=== PATIENT | female | born 1955 | race Two or more races ===

== ENCOUNTER 2025-04-29 14:37 | Inpatient (IN) | payer MEDICAID, OTHER ==
[~2025-04-29] VITALS: Ht 160 cm; Wt 83.1 kg
[2025-04-29 16:29] LABS: Hematocrit 44.7 % (36.0-46.0); Hemoglobin 15.1 g/dL (12.2-16.2); Mean Corpuscular Hemoglobin 27.1 pg (28.0-32.0); Mean Corpuscular Volume 80.3 fL (80.0-100.0); Nucleated Red Blood Cells % 0.1 %
--- NOTE | 2025-04-29 16:33 | ED.PDOC ---
GI ASSESSMENT HPI Comments 70 y/o morbidly obese, Bangladeshi speaking F presents with relative for c/c of nonradiating, umbilical abdominal pain, nausea, and vomiting. Significant history of cancer, hypertensin, and umbilical hernia repair 8x years ago. Patient reports onset of symptoms, last night, yesterday, which began with nausea and vomiting. Abdominal pain is reported to have started today, rated a 10/10 in severity, and did not improve with [id number] Tylenol use. Notable recent history of the patient lifting a heavy box 1x week ago. No endorsed recent travel, injuries, spoiled food consumption, or further associated symptoms. Patient was mildly hypertensive on arrival. Chief Complaint: Abdominal Pain Time Seen by MD: 15:50 Reviewed Notes: Nurses Notes, Medications, Allergies Allergies: Coded Allergies: NO KNOWN ALLERGIES (Unverified , 04/29/25) Information Source: Patient, Relative Mode of Arrival: Ambulatory Timing: Hours Duration: Since onset Prehospital treatment: Pain Meds Quality: Aching, Cramping, Sharp Vomitus: Food Particles, Soft, Watery Severity: Severe Recent: None Recent Hx of: Diabetes Pain Location: Diffuse, Epigastric, Periumbilical Modifying Factors: Food Associated sign and symptoms: Nausea, Vomiting, Abdominal Pain Past Medical History PAST MEDICAL HISTORY: Cancer, HTN Surgical History: Hernia Repair (umbilical ) [employer] History: Denies all [employer] Hx Family History Family History: Unknown Social History Smoker: Non-Smoker Alcohol: Denies ETOH Use Drugs: Denies Drug Use Lives In: Home Constitutional: denies: chills, diaphoresis, fatigue, fever, malaise, sweats, weakness, others EENTM: denies: blurred vision, double vision, ear bleeding, ear discharge, ear drainage, ear pain, ear ringing, eye pain, eye redness, hearing loss, mouth pain, mouth swelling, nasal discharge, nose bleeding, nose congestion, nose pain, photophobia, tearing, throat pain, throat swelling, voice changes, others Respiratory: denies: cough, hemoptysis, orthopnea, SOB at rest, shortness of breath, SOB with excertion, stridor, wheezing, others Cardiovascular: denies: chest pain, dizzy spells, diaphoresis, Dyspnea on exertion, edema, irregular heart beat, left arm pain, lightheadedness, palpitations, PND, syncope, others Gastrointestinal: reports: abdominal pain, nausea, vomiting; denies: abdomen distended, blood streaked bowels, constipated, diarrhea, dysphagia, difficulty swallowing, hematemesis, melena, poor appetite, poor fluid intake, rectal bleeding, rectal pain, others Genitourinary: denies: abnormal vagina bleeding, burning, dyspareunia, dysuria, flank pain, frequency, hematuria, incontinence, pain, , vagina discharge, urgency, others Neurological: denies: dizziness, fainting, headache, left sided numbness, left sided weakness, numbness, paresthesia, pre-existing deficit, right sided numbness, right sided weakness, seizure, speech problems, tingling, tremors, weakness, others Musculoskeletal: denies: back pain, gout, joint pain, joint swelling, muscle pain, muscle stiffness, neck pain, others Integumetry: denies: bruises, change in color, change in hair/nails, dryness, laceration, lesions, lumps, rash, wounds, others Allergic/Immunocompromised: denies: Difficulty Healing, Frequent Infections, Hives, Itching, others Hematologic/Lymphatic: denies: anemia, blood clots, easy bleeding, easy bruising, swollen glands, others Endocrine: denies: excessive hunger, excessive sweating, excessive thirst, excessive urination, flushing, intolerance to cold, intolerance to heat, unexplained weight gain, unexplained weight loss, others Psychiatric: denies: anxiety, bipolar disorder, depression, hopeless, panic disorder, schizophrenia, sleepless, suicidal, others All Other Systems: Reviewed and Negative (Comprehensive review of systems are negative unless stated in HPI) Physical Exam General Appearance: Moderate Distress (Due to belly pain concerns. Patient looks moderately toxic.), Obese HEENT: Normal ENT Inspection, Pharynx Normal, TMs Normal Neck: Full Range of Motion, Non-Tender, Normal, Normal Inspection Respiratory: Chest Non-Tender, Lungs Clear, No Accessory Muscle Use, No Respiratory Distress, Normal Breath Sounds Cardiovascular: No Edema, No JVD, No Murmur, No Gallop, Normal Peripheral Pulses, Regular Rate/Rhythm Breast Exam: Deferred Gastrointestinal: Other (Diffuse periumbilical and epigastric tenderness to palpation throughout. Difficult to assess due to body habitus. No pulsatile masses. No signs of trauma.) Genitalia: Deferred Pelvic: Deferred Rectal: Deferred Extremities: Non-tender Neurologic: Alert Cerebellar Function: NOT DONE Reflexes: NOT DONE Skin: Dry, Normal Color, Warm Lymphatic: No Adenopathy Was a procedure done? Was a procedure done?: No GI differential Dx Differential Diagnosis: Constipation, Diverticular disease, Gastritis/PUD, Gastroenteritis, Hernia, Pancreatitis, UTI, Electrolyte Imbalance X-Ray, Labs, Meds, VS Vital Signs Date Time Temp Pulse Resp B/P (MAP) Pulse Ox O2 Delivery O2 Flow Rate FiO2 04/29/25 21:51 83 22 174/108 04/29/25 20:43 98.4 79 16 150/93 (112) 96 98.4 04/29/25 15:03 98.2 71 18 147/77 99 98.2 Lab Test 04/29/25 18:05 04/29/25 16:30 04/29/25 16:09 Range/Units Troponin I High Sensitivity 4 4 </=34 ng/L Urine Color Yellow Yellow Urine Clarity Turbid H Clear Urine pH 6.0 5.0-9.0 Urine Specific [place] 1.038 H 1.001-1.035 Urine Protein 1+ H Negative Urine Ketones Trace Negative Urine Blood Negative Negative /uL Urine Nitrite Negative Negative Urine Bilirubin 1+ H Negative Urine Urobilinogen 2 H Negative mg/dL Urine Leukocyte Esterase 2+ Negative /uL Urine RBC 1 0 - 4 /hpf Urine Microscopic WBC 10 H 0-5 /HPF Urine Squamous Epithelial Cells Few <5 /hpf Urine Bacteria Few H None Seen /hpf Urine Hyaline Casts Few 0 - 2 /lpf Urine Mucus Few None Seen Urine Glucose Trace Normal mg/dL White Blood Count 15.2 H 4.4-10.8 10^3/uL Red Blood Count 5.57 H 4.0-5.20 10^6/uL Hemoglobin 15.1 12.2-16.2 g/dL Hematocrit 44.7 36.0-46.0 % Mean Corpuscular Volume 80.3 80.0-100.0 fL Mean Corpuscular Hemoglobin 27.1 L 28.0-32.0 pg Mean Corpuscular Hemoglobin Concent 33.8 32.0-36.0 g/dL Red Cell Distribution Width 15.8 H 11.8-14.3 % Platelet Count 234 140-450 10^3/uL Mean Platelet Volume 8.3 6.9-10.8 fL Neutrophils (%) (Auto) 87.1 H 37.0-80.0 % Lymphocytes (%) (Auto) 8.3 L 10.0-50.0 % Monocytes (%) (Auto) 4.5 0.0-12.0 % Eosinophils (%) (Auto) 0.0 0.0-7.0 % Basophils (%) (Auto) 0.1 0.0-2.0 % Neutrophils # (Auto) 13.3 H 1.6-8.6 10 ^3/uL Lymphocytes # (Auto) 1.3 0.4-5.4 10 ^3/uL Monocytes # (Auto) 0.7 0-1.3 10 ^3/uL Eosinophils # (Auto) 0 0-0.8 10 ^3/uL Basophils # (Auto) 0 0-0.2 10 ^3/uL Nucleated Red Blood Cells 0.1 % Sodium Level 139 136-145 mmol/L Potassium Level 3.3 L 3.5-5.1 mmol/L Chloride Level 97 L 98-107 mmol/L Carbon Dioxide Level 30 20-31 mmol/L Anion Gap 12 5-15 Blood Urea Nitrogen 15 9-23 mg/dL Creatinine 0.83 0.550-1.02 mg/dL Glomerular Filtration Rate Calc 76 >90 mL/min BUN/Creatinine Ratio 18.1 10.0-20.0 Serum Glucose 138 H 74-106 mg/dL Lactic Acid Level 1.3 0.4-2.0 mmol/L Calcium Level 9.4 8.7-10.4 mg/dL Lipase 599 H 12-53 U/L Current Medications Medications (Trade) Dose Ordered Sig/[facility] Route Start Time Stop Time Status Last Admin Hydromorphone HCl (Dilaudid Injection) 0.5 mg ONCE ONCE IM 04/29/25 16:00 04/29/25 16:01 DC 04/29/25 21:51 Ondansetron HCl (Zofran) 4 mg ONCE ONCE IM 04/29/25 16:00 04/29/25 16:01 DC 04/29/25 21:50 X-Ray, Labs, Meds, VS Comment All studies performed in the ED were evaluated by me personally. Serum evaluation revealed a leukocytosis, mild hypokalemia, significant elevated lipase indicative of a pancreatitis as well as confirmation of the urinary tract infection. CT of the abdomen and pelvis with contrast showed an acute interstitial pancreatitis with a focal area of hypoattenuation of the pancreatic head and neck which may represent an area of pancreatic necrosis. Duodenitis noted. Small volume ascites as well as cholelithiasis. Patient will be admitted for management of her pancreatitis as well as a urinary tract infection and other comorbidities. Time of 1ST Reevaluation: 22:42 Reevaluation 1ST: Improved Consultation: PCP Patient Education/Counseling: Diagnosis, Treatment Family Education/Counseling: Diagnosis, Treatment, No Family Present SEPSIS Sepsis Screen Date sepsis recognized/suspect: Apr 29, 2025 Time Sepsis recognized/suspect: 1504 Recent Procedure: No On Antibiotic Therapy: No Respiratory Rate >20: No Heart Rate >90: No Temp<36 C (96.8 F) or >38.3 C: No SBP <90 or MAP <65 mmHG: No New Acute Mental Status Change: No Is the patient on CPAP, BIPAP,: No Physician Orders Troponin-I Hs (04/30/25 00:00) Troponin-I Hs (04/30/25 03:00) Ct Ab Pel With Iv Con Only (04/29/25 15:52) Heplock Iv (04/29/25 15:52) Vital Signs Date Time Temp Pulse Resp B/P (MAP) Pulse Ox O2 Delivery O2 Flow Rate FiO2 04/29/25 21:51 83 22 174/108 04/29/25 20:43 98.4 79 16 150/93 (112) 96 98.4 04/29/25 15:03 98.2 71 18 147/77 99 98.2 Laboratory Tests Test 04/29/25 16:09 Lactic Acid Level 1.3 mmol/L (0.4-2.0) White Blood Count 15.2 10^3/uL (4.4-10.8) H Medications Medications Dose Ordered Sig/[facility] Route Start Time Stop Time Status Last Admin Dose Admin Hydromorphone HCl 0.5 mg ONCE ONCE IM 04/29/25 16:00 04/29/25 16:01 DC 04/29/25 21:51 Ondansetron HCl 4 mg ONCE ONCE IM 04/29/25 16:00 04/29/25 16:01 DC 04/29/25 21:50 Departure 1 Departure Time of Disposition: 22:43 Impression: Primary Impression: Acute pancreatitis Additional Impressions: Pancreatic necrosis Hypokalemia Urinary tract infection Hypertensive urgency Disposition: ADMITTED INPATIENT Condition: Stable Discharged With: Self, Relative Critical Care Note Critical Care Time?: No Stability Stability form required: No Heart Score Heart Score: Heart Score Response (Comments) Value History N/A 0 EKG N/A 0 Age N/A 0 Risk Factors N/A 0 Troponin N/A 0 Total 0 I personally scribed for RUMA VERAS PAC ([email or web address]) on 04/29/25 at 16:33. Electronically submitted by Eliezer López ([email or web address]). RUMA VERAS PAC Apr 29, 2025 16:33
[2025-04-29 16:40] LABS: Sodium 139 mmol/L (136-145)
[2025-04-29 16:41] LABS: Anion Gap 12 (5-15); Calcium 9.4 mg/dL (8.7-10.4); Carbon Dioxide 30 mmol/L (20-31)
[2025-04-29 16:46] LABS: BUN/Creatinine Ratio 18.1 (10.0-20.0); Blood Urea Nitrogen 15 mg/dL (9-23)
[2025-04-29 16:47] LABS: Chloride 97 mmol/L (98-107); Glucose 138 mg/dL (74-106); Lipase 599 U/L (12-53); Potassium 3.3 mmol/L (3.5-5.1)
[2025-04-29 17:07] LABS: Urine Protein, UAD 1+ (Negative)
--- NOTE | 2025-04-29 19:45 | DVH ---
EXAM: CT CT AB PEL WITH IV CON ONLY HISTORY: Severe bilateral abdominal pain TECHNIQUE: Volumetric multidetector CT images of the abdomen and pelvis were obtained after the admin istration of intravenous contrast. All CT scans at this facility use dose modulation, iterative recon struction, and/or weight based dosing when appropriate to reduce radiation dose to as low as reasonab ly achievable. COMPARISON: None FINDINGS: [LOWER CHEST]: The partially visualized lung bases are clear without a pleural effusion. [LIVER]: Normal hepatic size without suspicious focal lesion. [GALLBLADDER AND BILIARY TREE]: Large gallstone measuring 2.4 cm. Pericholecystic edema. [SPLEEN]: Unremarkable. [PANCREAS]: Significant edema surrounding the entirety of the pancreas with focal area of hypoattenua tion of the pancreatic head/neck junction which may represent focal area of pancreatic necrosis. Conc omitant duodenitis. [ADRENAL GLANDS]: Unremarkable [KIDNEYS]: No hydronephrosis. No nephroureterolithiasis. No suspicious focal lesion. [BLADDER]: Unremarkable for the degree distention. [REPRODUCTIVE ORGANS]: Unremarkable. [BOWEL/MESENTERY]: Stomach is normal. No CT evidence of bowel obstruction. [ASCITES]: Small volume ascites. [LYMPHADENOPATHY]: No pathologically enlarged lymph nodes by CT size criteria. Surgical clips along the iliac chains pelvic sidewall. [VASCULATURE]: No aneurysmal dilatation. [ABDOMINAL WALL]: Postsurgical change along the anterior abdominal with slight spiculated appearance correlate with clinical exam for scarring [MUSCULOSKELETAL]: No acute fracture or aggressive focal osseous lesion. Multifocal degenerative montgomery ge of the visualized spine. IMPRESSION: 1. Acute interstitial pancreatitis with focal area of hypoattenuation of the pancreatic head/neck anna marie ction which may represent focal area of pancreatic necrosis. 2. Concomitant duodenitis. 3. Small volume ascites. 4. Cholelithiasis.
[2025-04-29] MEDS: IOHEXOL 300 MG/ML 100ML BOTTLE IJ ONE (21:48)
[2025-04-29] MEDS: ONDANSETRON HCL 4 MG/2 ML VIAL IM ONE (21:50)
[2025-04-29] MEDS: HYDROmorphone HCL 2 MG/ML VL/or syr IM ONE (21:51)
[2025-04-29] MEDS ORDERED: DOCUSATE SOD 100 MG CAP PO PRN (23:15)
[2025-04-29] MEDS ORDERED: MORPHINE SULFATE INJ 2 MG/ml SYRG IV PRN (23:15)
[2025-04-29] MEDS ORDERED: hydrALAZINE HCL 20 MG/ML VL IV PRN (23:15)
[2025-04-29] MEDS ORDERED: NITROGLYCERIN 0.4 MG SL TAB SL PRN (23:15)
[2025-04-29] MEDS ORDERED: DEXTROSE (50%) 50ML SYRG IV PRN (23:15)
[2025-04-29] MEDS ORDERED: ONDANSETRON HCL 4 MG/2 ML VIAL IV PRN (23:15)
--- NOTE | 2025-04-29 23:20 | DVHHP2 ---
History of Present Illness Reason for Visit: Acute pancreatitis History of Present Illness The patient is a 70-year-old female morbidly obese with past medical history of cancer, hypertension, and umbilical hernia who presented to [facility] ED with complaint of abdominal pain. Patient reports she has been experiencing acute abdominal pain, rating 10/10 in severity, constant, associated with nausea, vomiting, getting worse that prompted this visit. Patient was seen and evaluated in the ED, laboratory data shows WBC 15.2, platelets 234, sodium 139, potassium 3.3, BUN 15, creatinine 0.83, glucose 138, calcium 9.4, troponin 4, lipase 599, blood pressure 175/102 trending down to 148/71, heart rate 72, temperature 98.4 F, O2 saturation 96% on room air. Abdomen/pelvis CT revealing acute interstitial pancreatitis with focal area of hyperattenuation of the pancreatic head/neck junction which may represent focal area of pancreatic necrosis. Please see medication orders section in the computer. On my assessment, daughter at bedside, patient denies chest pain, no headache, dizziness, diaphoresis, shortness a breath, no abdominal pain at this moment, diarrhea, nausea, vomiting, fever, chills. Patient was admitted for further evaluation and medical management. Past Medical History Cancer, HTN, Umbilical hernia Past Surgical History Hernia Repair (umbilical) Family History Reviewed, noncontributory to the management of this case. Past Social History The patient lives at home, denies smoking, alcohol or illicit drugs abuse. Review of Systems Constitutional: Yes: Weakness; No: Fever, Chills, Sweats, Malaise, Other Eyes: No: Pain, Vision change, Conjunctivae inflammation, Eyelid inflammation, Other, Redness ENT: No: Ear pain, Ear discharge, Nose pain, Nose discharge, Nose congestion, Mouth pain, Mouth swelling, Throat pain, Throat swelling, Other Respiratory: No: Cough, Dry, Shortness of breath, SOB with excertion, Wheezing, Hemoptysis, Pleuritic Pain, Sputum, Wheezing, Other Cardiovascular: No: Chest Pain, Palpitations, Orthopnea, Paroxysmal Noc. Dyspnea, Edema, Lt Headedness, Other Gastrointestinal: Nausea, Vomiting, Abdominal Pain; No: Diarrhea, Constipation, Melena, Hematochezia, Other Genitourinary: No Dysuria, No Frequency, No Incontinence, No Hematuria, No Rete ntion, No Other Musculoskeletal: No: other, neck pain, shoulder pain, arm pain, back pain, hand pain, leg pain, foot pain Skin: No: Rash, Lesions, Jaundice, Bruising, Other Neurological: No: Weakness, Numbness, Incoordination, Change in speech, Confusion, Seizures, Other Allergies: Coded Allergies: NO KNOWN ALLERGIES (Unverified , 04/29/25) Exam Vital Signs Vital Signs Date Time Temp Pulse Resp B/P (MAP) Pulse Ox O2 Delivery O2 Flow Rate FiO2 04/29/25 22:59 71 16 175/102 (126) 93 04/29/25 20:43 98.4 98.4 General Appearance: Alert, Oriented X3, Cooperative, No acute distress HEENT: Atraumatic, PERRLA, EOMI, Mucous membr. moist/pink Respiratory: Clear to auscultation, Normal air movement Cardiovascular: Regular rate, Normal S1, Normal S2, No murmurs Abdominal: Normal bowel sounds, Soft, No hepatospenomegaly, No masses, Other (Reports tenderness) Extremities: No clubbing, No cyanosis, No edema, Normal pulses, No tenderness/swelling Skin: No rashes, No breakdown, No significant lesion Neuro: Normal gait, Normal speech, Strength at 5/5 X4 ext, Normal tone, Sensation intact, Cranial nerves 3-12 NL, Reflexes 2+ Psych/Mental Status: Mental status NL, Mood NL Labs/Xrays Labs Test 04/29/25 18:05 04/29/25 16:30 04/29/25 16:09 Range/Units Troponin I High Sensitivity 4 </=34 ng/L Urine Color Yellow Yellow Urine Clarity Turbid H Clear Urine pH 6.0 5.0-9.0 Urine Specific [place] 1.038 H 1.001-1.035 Urine Protein 1+ H Negative Urine Ketones Trace Negative Urine Blood Negative Negative /uL Urine Nitrite Negative Negative Urine Bilirubin 1+ H Negative Urine Urobilinogen 2 H Negative mg/dL Urine Leukocyte Esterase 2+ Negative /uL Urine RBC 1 0 - 4 /hpf Urine Microscopic WBC 10 H 0-5 /HPF Urine Squamous Epithelial Cells Few <5 /hpf Urine Bacteria Few H None Seen /hpf Urine Hyaline Casts Few 0 - 2 /lpf Urine Mucus Few None Seen Urine Glucose Trace Normal mg/dL White Blood Count 15.2 H 4.4-10.8 10^3/uL Red Blood Count 5.57 H 4.0-5.20 10^6/uL Hemoglobin 15.1 12.2-16.2 g/dL Hematocrit 44.7 36.0-46.0 % Mean Corpuscular Volume 80.3 80.0-100.0 fL Mean Corpuscular Hemoglobin 27.1 L 28.0-32.0 pg Mean Corpuscular Hemoglobin Concent 33.8 32.0-36.0 g/dL Red Cell Distribution Width 15.8 H 11.8-14.3 % Platelet Count 234 140-450 10^3/uL Mean Platelet Volume 8.3 6.9-10.8 fL Neutrophils (%) (Auto) 87.1 H 37.0-80.0 % Lymphocytes (%) (Auto) 8.3 L 10.0-50.0 % Monocytes (%) (Auto) 4.5 0.0-12.0 % Eosinophils (%) (Auto) 0.0 0.0-7.0 % Basophils (%) (Auto) 0.1 0.0-2.0 % Neutrophils # (Auto) 13.3 H 1.6-8.6 10 ^3/uL Lymphocytes # (Auto) 1.3 0.4-5.4 10 ^3/uL Monocytes # (Auto) 0.7 0-1.3 10 ^3/uL Eosinophils # (Auto) 0 0-0.8 10 ^3/uL Basophils # (Auto) 0 0-0.2 10 ^3/uL Nucleated Red Blood Cells 0.1 % Sodium Level 139 136-145 mmol/L Potassium Level 3.3 L 3.5-5.1 mmol/L Chloride Level 97 L 98-107 mmol/L Carbon Dioxide Level 30 20-31 mmol/L Anion Gap 12 5-15 Blood Urea Nitrogen 15 9-23 mg/dL Creatinine 0.83 0.550-1.02 mg/dL Glomerular Filtration Rate Calc 76 >90 mL/min BUN/Creatinine Ratio 18.1 10.0-20.0 Serum Glucose 138 H 74-106 mg/dL Lactic Acid Level 1.3 0.4-2.0 mmol/L Calcium Level 9.4 8.7-10.4 mg/dL Lipase 599 H 12-53 U/L PATIENT: SIMRAN NASH ACCT: [id number] UNIT: [id number] : 1955 LOC: ER ROOM / BED: / AGE / SEX: 70 / F ADM STATUS: REG ER SERVICE 1552 ORDERING PHYSICIAN: RUMA VERAS PAC PROCEDURE(s): ABPLIV - CT AB PEL WITH IV CON ONLY REASON: Severe bilateral abdominal pain ORDER NUMBER(s): [id number], ACCESSION NUMBER(s): [id number] EXAM: CT CT AB PEL WITH IV CON ONLY HISTORY: Severe bilateral abdominal pain TECHNIQUE: Volumetric multidetector CT images of the abdomen and pelvis were obtained after the administration of intravenous contrast. All CT scans at this facility use dose modulation, iterative reconstruction, and/or weight based dosing when appropriate to reduce radiation dose to as low as reasonably achievable. COMPARISON: None FINDINGS: [LOWER CHEST]: The partially visualized lung bases are clear without a pleural effusion. [LIVER]: Normal hepatic size without suspicious focal lesion. [GALLBLADDER AND BILIARY TREE]: Large gallstone measuring 2.4 cm. Pericholecystic edema. [SPLEEN]: Unremarkable. [PANCREAS]: Significant edema surrounding the entirety of the pancreas with focal area of hypoattenuation of the pancreatic head/neck junction which may represent focal area of pancreatic necrosis. Concomitant duodenitis. [ADRENAL GLANDS]: Unremarkable [KIDNEYS]: No hydronephrosis. No nephro-ureterolithiasis. No suspicious focal lesion. [BLADDER]: Unremarkable for the degree distention. [REPRODUCTIVE ORGANS]: Unremarkable. [BOWEL/MESENTERY]: Stomach is normal. No CT evidence of bowel obstruction. [ASCITES]: Small volume ascites. [LYMPHADENOPATHY]: No pathologically enlarged lymph nodes by CT size criteria. Surgical clips along the iliac chains pelvic sidewall. [VASCULATURE]: No aneurysmal dilatation. [ABDOMINAL WALL]: Postsurgical change along the anterior abdominal with slight spiculated appearance correlate with clinical exam for scarring [MUSCULOSKELETAL]: No acute fracture or aggressive focal osseous lesion. Multi focal degenerative change of the visualized spine. IMPRESSION: 1. Acute interstitial pancreatitis with focal area of hypoattenuation of the pancreatic head/neck junction which may represent focal area of pancreatic necrosis. 2. Concomitant duodenitis. 3. Small volume ascites. 4. Cholelithiasis. SEPSIS Sepsis Screen Date sepsis recognized/suspect: Apr 29, 2025 Time Sepsis recognized/suspect: 1505 Recent Procedure: No On Antibiotic Therapy: No Respiratory Rate >20: No Heart Rate >90: No Temp<36 C (96.8 F) or >38.3 C: No SBP <90 or MAP <65 mmHG: No New Acute Mental Status Change: No Is the patient on CPAP, BIPAP,: No Physician Orders Troponin-I Hs (04/30/25 00:00) Troponin-I Hs (04/30/25 03:00) Ct Ab Pel With Iv Con Only (04/29/25 15:52) Heplock Iv (04/29/25 15:52) Ceftriaxone Ivpb Rocephin (04/30/25 09:00) Metronidazole Ivpb Flagyl (04/30/25 06:00) Hydralazine Injection (Apresoline Inject (04/29/25 23:15) Potassium Chl Shiva Kcl (04/29/25 23:15) Losartan Tablet (Cozaar Tablet) (04/30/25 10:00) Amlodipine Tablet (Norvasc Tablet) (04/30/25 10:00) Blood Culture (04/29/25 23:08) Urine Bacterial Culture (04/29/25 23:08) Hemoglobin A1c (04/29/25 23:08) Glucose Blood (Accu-Chek Comfort Curve T (04/30/25 07:00) Mild Sliding Scale (04/30/25 07:00) Dextrose 50% Syringe (04/29/25 23:15) Admit (04/29/25 23:08) Allergies (04/29/25 23:08) Code Status (04/29/25 23:08) 0.9% Ns 1000 Ml (04/29/25 23:15) Oxygen Per Hour (04/29/25 23:08) Hydrocodone-Acet 5/325mg Tab ([place] 5/32 (04/29/25 23:15) Ondansetron Hcl (Zofran) (04/29/25 23:15) Docusate Sodium Capsule (Colace Capsule) (04/29/25 23:15) Complete Blood Count (04/30/25 04:00) Comprehensive Metabolic Panel (04/30/25 04:00) Condition: Serious (04/29/25 23:08) Acetaminophen Tablet (Tylenol Tablet) (04/29/25 23:15) Clear Liq Diet (04/30/25 Breakfast) Bedrest With Bathroom Privileg (04/29/25 23:08) Sequential Compression Device (04/29/25 ) Nitroglycerin Sublingual (Ntrostat Subli (04/29/25 23:15) Vital Signs Date Time Temp Pulse Resp B/P (MAP) Pulse Ox O2 Delivery O2 Flow Rate FiO2 04/29/25 22:59 71 16 175/102 (126) 93 04/29/25 22:56 175/102 04/29/25 22:56 71 14 175/102 04/29/25 21:51 83 22 174/108 04/29/25 20:43 98.4 79 16 150/93 (112) 96 98.4 Laboratory Tests Test 04/29/25 16:09 Lactic Acid Level 1.3 mmol/L (0.4-2.0) White Blood Count 15.2 10^3/uL (4.4-10.8) H Medications Medications Dose Ordered Sig/Leonora Route Start Time Stop Time Status Last Admin Dose Admin Ceftriaxone Sodium 50 ml @ 100 mls/hr ONCE ONCE IV 04/29/25 22:45 04/29/25 23:14 DC 04/29/25 22:56 100 MLS/HR Clonidine HCl 0.2 mg ONCE ONCE PO 04/29/25 22:45 04/29/25 22:46 DC 04/29/25 22:56 0.2 MG Hydromorphone HCl 0.5 mg ONCE ONCE IM 04/29/25 16:00 04/29/25 16:01 DC 04/29/25 21:51 0.5 MG Ondansetron HCl 4 mg ONCE ONCE IM 04/29/25 16:00 04/29/25 16:01 DC 04/29/25 21:50 4 MG Assessment/Plan Assessment/Plan Acute pancreatitis Pancreatic necrosis Hypokalemia Hyperglycemia Leukocytosis, unspecified Urinary tract infection Hypertensive urgency Acute abdominal pain Intractable nausea and vomiting Plan 1. Admit to telemetry unit 2. Breathing treatment 3. Pain control management 4. IV antibiotic management 5. Management of fluids and electrolytes 6. Consultation for hospitalist 7. Diagnostic test abdomen/pelvis 8. DVT prophylaxis on SCDS 9. Repeat labs CBC, CMP in a.m. 10. Home medication reviewed and reconciled 11. Continue with current medical management 12. Treatment plan discussed with patient and RN. Patient verbalized understanding. Plan discussed with: Patient, Other (RN) My Orders Orders - PAUL OLIVO DNP Procedure Category Date Status Time Ceftriaxone Ivpb PHA 04/30/25 Verified Rocephin 09:00 Metronidazole Ivpb PHA 04/30/25 Verified Flagyl 06:00 Hydralazine Injection PHA 04/29/25 Verified (Apresoline Inject 23:15 Potassium Chl Shiva PHA 04/29/25 Verified KCL 23:15 Losartan Tablet PHA 04/30/25 Verified (Cozaar Tablet) 10:00 Amlodipine Tablet PHA 04/30/25 Verified (Norvasc Tablet) 10:00 Blood Culture DUC 04/29/25 Verified 23:08 Urine Bacterial DUC 04/29/25 Verified Culture 23:08 Hemoglobin A1c LAB 04/29/25 Verified 23:08 Glucose Blood PHA 04/30/25 Verified (Accu-Chek Comfort 07:00 Mild Sliding Scale PHA 04/30/25 Verified 07:00 Dextrose 50% Syringe PHA 04/29/25 Verified 23:15 Admit ADMIT 04/29/25 Verified 23:08 Allergies LENKA 04/29/25 Verified 23:08 Code Status CODE 04/29/25 Verified 23:08 0.9% Ns 1000 Ml PHA 04/29/25 Verified 23:15 Oxygen Per Hour RT 04/29/25 Verified 23:08 Hydrocodone-Acet PHA 04/29/25 Verified 5/325mg Tab ([place] 23:15 Ondansetron Hcl PHA 04/29/25 Verified (Zofran) 23:15 Docusate Sodium PHA 04/29/25 Verified Capsule (Colace 23:15 Complete Blood Count LAB 04/30/25 Verified 04:00 Comprehensive LAB 04/30/25 Verified Metabolic Panel 04:00 Condition: Serious LENKA 04/29/25 Verified 23:08 Acetaminophen Tablet PHA 04/29/25 Verified (Tylenol Tablet) 23:15 Clear Liq Diet DIET 04/30/25 Verified Breakfast Bedrest With Bathroom LENKA 04/29/25 Verified Privileg 23:08 Sequential LENKA 04/29/25 Verified Compression Device Nitroglycerin PHA 04/29/25 Verified Sublingual (Ntrostat 23:15 Problem List: (1) Acute pancreatitis (2) Pancreatic necrosis (3) Hypokalemia (4) Hyperglycemia (5) Acute abdominal pain (6) Leukocytosis, unspecified (7) Hypertensive urgency (8) Urinary tract infection (9) Intractable nausea and vomiting Date of Service: Apr 29, 2025 Billing Provider: PAUL OLIVO DNP Common Visit Codes: [id number] INP/OBS CARE (HIGH) PAUL OLIVO DNP Apr 29, 2025 23:20
[2025-04-30] VITALS (8 sets, daily range): BP systolic 107–136; BP diastolic 54–74; PULSE 70–78; RESP 13–20; TEMP 97.9–98.5; O2SAT 90–96
[2025-04-30] MEDS: SODIUM CHLORIDE 0.9% 1,000 ML IV SCH (00:21)
[2025-04-30] MEDS: HYDROcodone-ACET 5/325MG TAB PO PRN (03:41)
[2025-04-30 04:55] LABS: Hematocrit 47.6 % (36.0-46.0); Hemoglobin 15.7 g/dL (12.2-16.2); Mean Corpuscular Hemoglobin 27.3 pg (28.0-32.0); Mean Corpuscular Volume 82.5 fL (80.0-100.0); Nucleated Red Blood Cells % 0.1 %
[2025-04-30 05:49] LABS: Albumin 4.3 g/dL (3.2-4.8); Anion Gap 16 (5-15); BUN/Creatinine Ratio 25.3 (10.0-20.0); Blood Urea Nitrogen 21 mg/dL (9-23); Carbon Dioxide 28 mmol/L (20-31); Sodium 138 mmol/L (136-145); Total Protein 7.2 g/dL (5.7-8.2)
[2025-04-30 05:50] LABS: Alanine Aminotransferase 187 U/L (7-40); Alkaline Phosphatase 119 U/L (46-116); Bilirubin, Total 1.0 mg/dL (0.2-1.0); Calcium 8.5 mg/dL (8.7-10.4); Chloride 94 mmol/L (98-107); Glucose 170 mg/dL (74-106); Potassium 3.3 mmol/L (3.5-5.1)
[2025-04-30] MEDS: InsuLIN REG 1unit/0.01ml Soln (100units/ml) SC SCH (07:03)
[2025-04-30] MEDS: ACCU-CHEK COMFORT CURVE STRIP VI SCH (07:04)
[2025-04-30] MEDS: POTASSIUM CHL 20MEQ/100ML 100 ML IV ONE (09:17)
[2025-04-30] MEDS: LOSARTAN POTASSIUM 50 MG TAB PO SCH (09:18)
[2025-04-30] MEDS ORDERED: LISI10TA34 PO (10:21)
[2025-04-30] MEDS ORDERED: DULO1CAP6 PO (10:21)
[2025-04-30] MEDS ORDERED: ATOR40TA52 PO (10:21)
[2025-04-30] MEDS ORDERED: CHOL400C7 PO (10:21)
--- NOTE | 2025-04-30 13:30 | DVHPN2 ---
Reviewed: Care Plan, H&P, Labs, Medications, Previous Orders, Radiology Changes from previous H/P or p: No Changes Eyes: No Pain, No Vision change, No Conjunctivae inflammation, No Eyelid inflammation, No Other, No Redness ENT: No Ear pain, No Ear discharge, No Nose pain, No Nose discharge, No Nose congestion, No Mouth pain, No Mouth swelling, No Throat pain, No Throat swelling, No Other Cardiovascular: No Chest Pain, No Palpitations, No Orthopnea, No Paroxysmal Noc. Dyspnea, No Edema, No Lt Headedness, No Other Respiratory: No Cough, No Dry, No Shortness of breath, No SOB with excertion, No Wheezing, No Hemoptysis, No Pleuritic Pain, No Sputum, No Other Gastrointestinal: Nausea, Vomiting, Abdominal Pain; No Diarrhea, No Constipation, No Melena, No Hematochezia, No Other Genitourinary: No Dysuria, No Frequency, No Incontinence, No Hematuria, No Retention, No Other Musculoskeletal: No other, No neck pain, No shoulder pain, No arm pain, No back pain, No hand pain, No leg pain, No foot pain Skin: No Rash, No Lesions, No Jaundice, No Bruising, No Other Objective Vitals Vital Signs Date Time Temp Pulse Resp B/P (MAP) Pulse Ox O2 Delivery O2 Flow Rate FiO2 04/30/25 13:00 98.5 78 20 128/69 (88) 91 98.5 04/30/25 03:30 Room Air* 0 21 Intake/Output Intake and Output 04/30/25 07:00 Intake Total 100 ml Balance 100 ml Intake IV Total 100 ml Medications Current Medications Medications Dose Ordered Sig/Leonora Route Start Time Stop Time Status Last Admin Dose Admin Ceftriaxone Sodium 50 ml @ 100 mls/hr DAILY@2100 IV 04/30/25 21:00 Metronidazole 100 ml @ 100 mls/hr Q8HR IV 04/29/25 23:30 04/30/25 06:57 100 MLS/HR Hydralazine HCl 10 mg Q6HP PRN IV 04/29/25 23:15 Losartan Potassium 50 mg DAILY PO 04/30/25 10:00 Amlodipine Besylate 5 mg DAILY PO 04/30/25 10:00 Diagnostic Test (Pha) 1 strip ACHS 04/30/25 07:00 04/30/25 11:25 1 STRIP Insulin Human Regular ACHS SC 10/12/25 07:00 04/30/25 11:37 2 UNITS Dextrose 50 ml UD PRN IV 04/29/25 23:15 Sodium Chloride 1,000 ml @ 120 mls/hr Q8H20M IV 04/29/25 23:15 04/30/25 07:38 120 MLS/HR Acetaminophen/ Hydrocodone Bitart 1 tab Q4HP PRN PO 04/29/25 23:15 04/30/25 09:25 1 TAB Ondansetron HCl 4 mg Q4HP PRN IV 04/29/25 23:15 Docusate Sodium 100 mg BIDPRN PRN PO 04/29/25 23:15 Acetaminophen 650 mg Q6HP PRN PO 04/29/25 23:15 Nitroglycerin 0.4 mg Q5MINP PRN SL 04/29/25 23:15 Morphine Sulfate 2 mg Q30M PRN IV 04/29/25 23:15 Laboratory Results Laboratory Tests 04/30/25 04:20 Chemistry Test 04/29/25 16:09 04/30/25 04:20 Calcium Level 9.4 mg/dL (8.7-10.4) 8.5 mg/dL (8.7-10.4) L Albumin 4.3 g/dL (3.2-4.8) Total Protein 7.2 g/dL (5.7-8.2) Lipid panel Test 04/29/25 16:09 Lipase 599 U/L (12-53) H LFT Test 04/30/25 04:20 Alanine Aminotransferase (ALT) 187 U/L (7-40) H Alkaline Phosphatase 119 U/L (46-116) H Aspartate Amino Transferase (AST) 154 U/L (13-40) H Total Bilirubin 1.0 mg/dL (0.2-1.0) HgA1c, TSH Test 04/29/25 16:09 Hemoglobin A1c 5.4 % A1C (<5.7) Urinalysis Test 04/29/25 16:30 Urine Color Yellow (Yellow) Urine Clarity Turbid (Clear) H Urine pH 6.0 (5.0-9.0) Urine Specific [place] 1.038 (1.001-1.035) Urine Protein 1+ (Negative) H Urine Ketones Trace (Negative) Urine Blood Negative /uL (Negative) Urine Nitrite Negative (Negative) Urine Bilirubin 1+ (Negative) H Urine Urobilinogen 2 mg/dL (Negative) H Urine Leukocyte Esterase 2+ /uL (Negative) Urine RBC 1 /hpf (0 - 4) Urine Microscopic WBC 10 /HPF (0-5) H Urine Squamous Epithelial Cells Few /hpf (<5) Urine Bacteria Few /hpf (None Seen) H Urine Hyaline Casts Few /lpf (0 - 2) Urine Mucus Few (None Seen) Urine Glucose Trace mg/dL (Normal) Labs and/or images reviewed: Labs reviewed by me, Image(s) reviewed by me Assessment/Plan Assessment/Plan Abdominal pain Acute pancreatitis NPO IV fluids pain medications Rocephin Flagyl Acute urinary tract infection: Rocephin History of cancer Hypertension History of umbilical hernia repair Spent 45 minutes Patient is full code Advanced care planning time 20 mts Plan discussed with: Patient My Orders Orders - GABRIEL AMAYA MD Procedure Category Date Status Time * Gi [facility] Bench Worker CONS 04/30/25 Transmitted 13:27 Date of Service: Apr 30, 2025 Billing Provider: GABRIEL AMAYA MD Common Visit Codes: [id number] INP/OBS CARE(HIGH) GABRIEL AMAYA MD Apr 30, 2025 13:30
--- NOTE | 2025-04-30 15:02 | DVH ---
INDICATION: abdominal pain TECHNIQUE: Multiple real-time sonographic images of the abdomen were obtained. COMPARISON: None FINDINGS: The liver is homogenous in echogenicity. The liver measures 13.2 cm. No intrahepatic bilia ry ductal dilatation is noted. The gallbladder wall measures 0.16 cm and is unremarkable. Gallstone is noted in the gallbladder me asuring 3.1 x 2.2 x 2.6 cm. Negative sonographic abad's sign is elicited.. The common duct measure s 0.61 cm and is unremarkable. No pericholecystic fluid is noted. The right kidney measures 9.6 cm. No hydronephrosis. Echogenic foci are noted in the right kidney wi th no hydronephrosis findings suggest nonobstructing renal calculi. The left kidney measures 9.5 cm. No hydronephrosis. The pancreas is not well visualized due to obscuration from bowel gas. The visualized portions of the IVC and aorta are grossly unremarkable. IMPRESSION: 1. 3 cm gallstone noted in the gallbladder which appears mobile. Gallbladder wall measures 0.16. Comm on bile duct is at the upper limits of normal 0.61 cm. 2. Liver measures 13.2 cm and has a normal-appearing hepatic parenchyma. 3. Negative sonographic Abad's sign 4. No hydronephrosis bilaterally
--- NOTE | 2025-04-30 17:39 | DVHINCON2 ---
Date of service: Apr 30, 2025 Referring Physician Joaquín Wang Reason for Consultation Pancreatitis History of Present Illness Patient is a 70-year-old morbidly obese lady who presented to [facility] ED with complaint of abdominal pain. Patient reports she has been experiencing acute abdominal pain, rating 10/10 in severity, constant, associated with nausea, vomiting, getting worse that prompted this visit. Ab domen/pelvis CT revealing acute interstitial pancreatitis with focal area of hyperattenuation of the pancreatic head/neck junction which may represent focal area of pancreatic necrosis. Patient denies chest pain, no headache, dizziness, diaphoresis, shortness a breath, no abdominal pain at this moment, diarrhea, nausea, vomiting, fever, chills. Patient was admitted for further evaluation and medical management. Past Medical History Past Medical History Cancer, HTN, Umbilical hernia Past Surgical History Past Surgical History Hernia Repair (umbilical) Family History: Diabetes mellitus G8 MOTHER FH: heart failure G8 FATHER Hypertension G8 FATHER Allergies: Coded Allergies: NO KNOWN ALLERGIES (Unverified , 04/29/25) Home Meds Reported Medications Cholecalciferol (Vitamin D) 400 Unit Cap, 500 UNIT PO BID, CAP 04/30/25 Duloxetine HCl (Duloxetine HCl) 60 Mg Cap, 60 MG PO DAILY, CAP 04/30/25 Lisinopril (Lisinopril) 10 Mg Tab, 10 MG PO DAILY for 30 Days, MG 04/30/25 Atorvastatin Calcium (ATORVASTATIN CALCIUM) 40 Mg Tab, 1 TAB PO QPM, #90 TAB 3 Refills 04/30/25 Current Medications Current Medications Medications (Trade) Dose Ordered Sig/Leonora Route PRN Reason Start Time Stop Time Status Last Admin Ceftriaxone Sodium 50 ml @ 100 mls/hr DAILY@2100 IV 04/30/25 21:00 Metronidazole 100 ml @ 100 mls/hr Q8HR IV 04/29/25 23:30 04/30/25 14:19 Hydralazine HCl (Apresoline Injection) 10 mg Q6HP PRN IV SBP>150 04/29/25 23:15 Losartan Potassium (Cozaar Tablet) 50 mg DAILY PO 04/30/25 10:00 Amlodipine Besylate (Norvasc Tablet) 5 mg DAILY PO 04/30/25 10:00 Diagnostic Test (Pha) (Accu-Chek Comfort Curve T) 1 strip ACHS 04/30/25 07:00 04/30/25 17:04 Insulin Human Regular (InsuLIN R) ACHS SC 04/30/25 07:00 04/30/25 11:37 Dextrose 50 ml UD PRN IV Blood Sugar LESS THAN 60 04/29/25 23:15 Sodium Chloride 1,000 ml @ 120 mls/hr Q8H20M IV 04/29/25 23:15 04/30/25 07:38 Acetaminophen/ Hydrocodone Bitart ([place] 5/325MG Tab) 1 tab Q4HP PRN PO MODERATE PAIN (4-6 PAIN SCALE) 04/29/25 23:15 04/30/25 14:28 Ondansetron HCl (Zofran) 4 mg Q4HP PRN IV NAUSEA / VOMITING 04/29/25 23:15 Docusate Sodium (Colace Capsule) 100 mg BIDPRN PRN PO FOR CONSTIPATION 04/29/25 23:15 Acetaminophen (Tylenol Tablet) 650 mg Q6HP PRN PO PAIN SCALE 1-3 OR TEMP>100.4 04/29/25 23:15 Nitroglycerin (Ntrostat Sublingual) 0.4 mg Q5MINP PRN SL FOR CHEST PAIN 04/29/25 23:15 Morphine Sulfate 2 mg Q30M PRN IV FOR CHEST PAIN 04/29/25 23:15 Vital Signs Vital Signs Date Time Temp Pulse Resp B/P (MAP) Pulse Ox O2 Delivery O2 Flow Rate FiO2 04/30/25 13:00 98.5 78 20 128/69 (88) 91 98.5 04/30/25 03:30 Room Air* 0 21 Physical Exam General Appearance: Alert, Oriented X3, Cooperative, No acute distress HEENT: Atraumatic, PERRLA, EOMI, Mucous membr. moist/pink Respiratory: Clear to auscultation, Normal air movement Cardiovascular: Regular rate, Normal S1, Normal S2, No murmurs Abdominal: Normal bowel sounds, Soft, No hepatospenomegaly, No masses, Other (Reports tenderness) Extremities: No clubbing, No cyanosis, No edema, Normal pulses, No tenderness/swelling Skin: No rashes, No breakdown, No significant lesion Neuro: Normal gait, Normal speech, Strength at 5/5 X4 ext, Normal tone, Sensat ion intact, Cranial nerves 3-12 NL, Reflexes 2+ Psych/Mental Status: Mental status NL, Mood NL Labs/Diagnostic Data Labs Test 04/30/25 11:13 04/30/25 04:20 04/29/25 16:30 04/29/25 16:09 Range/Units POC Glucose 152 H 70-106 mg/dl White Blood Count 15.3 H 4.4-10.8 10^3/uL Red Blood Count 5.77 H 4.0-5.20 10^6/uL Hemoglobin 15.7 12.2-16.2 g/dL Hematocrit 47.6 H 36.0-46.0 % Mean Corpuscular Volume 82.5 80.0-100.0 fL Mean Corpuscular Hemoglobin 27.3 L 28.0-32.0 pg Mean Corpuscular Hemoglobin Concent 33.1 32.0-36.0 g/dL Red Cell Distribution Width 16.2 H 11.8-14.3 % Platelet Count 171 140-450 10^3/uL Mean Platelet Volume 8.2 6.9-10.8 fL Neutrophils (%) (Auto) 88.4 H 37.0-80.0 % Lymphocytes (%) (Auto) 7.4 L 10.0-50.0 % Monocytes (%) (Auto) 4.1 0.0-12.0 % Eosinophils (%) (Auto) 0.0 0.0-7.0 % Basophils (%) (Auto) 0.1 0.0-2.0 % Neutrophils # (Auto) 13.5 H 1.6-8.6 10 ^3/uL Lymphocytes # (Auto) 1.1 0.4-5.4 10 ^3/uL Monocytes # (Auto) 0.6 0-1.3 10 ^3/uL Eosinophils # (Auto) 0 0-0.8 10 ^3/uL Basophils # (Auto) 0 0-0.2 10 ^3/uL Nucleated Red Blood Cells 0.1 % Sodium Level 138 136-145 mmol/L Potassium Level 3.3 L 3.5-5.1 mmol/L Chloride Level 94 L 98-107 mmol/L Carbon Dioxide Level 28 20-31 mmol/L Anion Gap 16 H 5-15 Blood Urea Nitrogen 21 9-23 mg/dL Creatinine 0.83 0.550-1.02 mg/dL Glomerular Filtration Rate Calc 76 >90 mL/min BUN/Creatinine Ratio 25.3 H 10.0-20.0 Serum Glucose 170 H 74-106 mg/dL Calcium Level 8.5 L 8.7-10.4 mg/dL Total Bilirubin 1.0 0.2-1.0 mg/dL Aspartate Amino Transferase (AST) 154 H 13-40 U/L Alanine Aminotransferase (ALT) 187 H 7-40 U/L Alkaline Phosphatase 119 H 46-116 U/L Troponin I High Sensitivity 4 </=34 ng/L Total Protein 7.2 5.7-8.2 g/dL Albumin 4.3 3.2-4.8 g/dL Urine Color Yellow Yellow Urine Clarity Turbid H Clear Urine pH 6.0 5.0-9.0 Urine Specific [place] 1.038 H 1.001-1.035 Urine Protein 1+ H Negative Urine Ketones Trace Negative Urine Blood Negative Negative /uL Urine Nitrite Negative Negative Urine Bilirubin 1+ H Negative Urine Urobilinogen 2 H Negative mg/dL Urine Leukocyte Esterase 2+ Negative /uL Urine RBC 1 0 - 4 /hpf Urine Microscopic WBC 10 H 0-5 /HPF Urine Squamous Epithelial Cells Few <5 /hpf Urine Bacteria Few H None Seen /hpf Urine Hyaline Casts Few 0 - 2 /lpf Urine Mucus Few None Seen Urine Glucose Trace Normal mg/dL Hemoglobin A1c 5.4 <5.7 % A1C Lactic Acid Level 1.3 0.4-2.0 mmol/L Lipase 599 H 12-53 U/L Gall bladder USG IMPRESSION: 1. 3 cm gallstone noted in the gallbladder which appears mobile. Gallbladder wall measures 0.16. Common bile duct is at the upper limits of normal 0.61 cm. 2. Liver measures 13.2 cm and has a normal-appearing hepatic parenchyma. 3. Negative sonographic Abad's sign 4. No hydronephrosis bilaterally Problems(with codes): (1) Intractable nausea and vomiting (2) Leukocytosis, unspecified (3) Acute abdominal pain (4) Acute pancreatitis (5) Cholelithiasis (6) Urinary tract infection (7) Pancreatic necrosis Plan/Recommendation Plan Patient is currently NPO on IV fluid hydration Patient is on broad-spectrum antibiotics Check urine culture Get surgical consult to further evaluate the gallbladder and determine need for elective cholecystectomy Continue to monitor labs, check lipid profile I will follow up patient with you Plan discussed with: Other (Dr Blair Wang) AALIYAH BENÍTEZ MD Apr 30, 2025 17:39
[2025-05-01] VITALS (8 sets, daily range): BP systolic 127–148; BP diastolic 74–86; PULSE 74–84; RESP 17–22; TEMP 91.8–98.3; O2SAT 91–98
[2025-05-01] MEDS: KETOROLAC TROMETH 30 MG/ML 1ML VIAL IV ONE (00:35)
[2025-05-01 07:57] LABS: Albumin 3.6 g/dL (3.2-4.8); Alkaline Phosphatase 77 U/L (46-116); Anion Gap 8 (5-15); BUN/Creatinine Ratio 24.5 (10.0-20.0); Blood Urea Nitrogen 12 mg/dL (9-23); Carbon Dioxide 30 mmol/L (20-31); Chloride 99 mmol/L (98-107); Cholesterol 127 mg/dL (< 200); Sodium 137 mmol/L (136-145); Total Protein 6.3 g/dL (5.7-8.2); Triglycerides 111 mg/dL (< 150)
[2025-05-01 07:58] LABS: Bilirubin, Total 0.8 mg/dL (0.2-1.0)
[2025-05-01 08:00] LABS: Alanine Aminotransferase 82 U/L (7-40); Calcium 8.2 mg/dL (8.7-10.4); Glucose 107 mg/dL (74-106); HDL Cholesterol 69 mg/dL (40-59); Potassium 3.4 mmol/L (3.5-5.1)
[2025-05-01 08:24] LABS: Lipase 86 U/L (12-53)
--- NOTE | 2025-05-01 11:24 | DVH ---
Procedure: NM NM HIDA SCAN Exam Date: 05/01/2025 10:19 AM Clinical History: elevated liver tests pancreatitis gallstones Comparison Study: 04/29/2025 Nuclear Medicine Hepatobiliary Scan. Technique: Following the intravenous administration of 4.3 mCi of technetium 99m labeled Choletec multiple plana r abdominal planar images were obtained in anterior projection in 2 minute intervals for 28 minutes . Right lateral images were obtained at 28 minutes after injection. Findings: The liver appears grossly normal in size. There is no abnormal persistence of the cardiac or blood po ol activity. There is prompt visualization of the gallbladder and excretion of activity into the smal l bowel. Gallbladder visualized at 8-10 minutes. Impression: Patent cystic duct.
--- NOTE | 2025-05-01 11:46 | DVHPN2 ---
Reviewed: Care Plan, H&P, Labs, Medications, Previous Orders, Radiology Changes from previous H/P or p: No Changes Eyes: No Pain, No Vision change, No Conjunctivae inflammation, No Eyelid inflammation, No Other, No Redness ENT: No Ear pain, No Ear discharge, No Nose pain, No Nose discharge, No Nose congestion, No Mouth pain, No Mouth swelling, No Throat pain, No Throat swelling, No Other Cardiovascular: No Chest Pain, No Palpitations, No Orthopnea, No Paroxysmal Noc. Dyspnea, No Edema, No Lt Headedness, No Other Respiratory: No Cough, No Dry, No Shortness of breath, No SOB with excertion, No Wheezing, No Hemoptysis, No Pleuritic Pain, No Sputum, No Other Gastrointestinal: Nausea, Vomiting, Abdominal Pain; No Diarrhea, No Constipation, No Melena, No Hematochezia, No Other Genitourinary: No Dysuria, No Frequency, No Incontinence, No Hematuria, No Retention, No Other Musculoskeletal: No other, No neck pain, No shoulder pain, No arm pain, No back pain, No hand pain, No leg pain, No foot pain Skin: No Rash, No Lesions, No Jaundice, No Bruising, No Other Objective Vitals Vital Signs Date Time Temp Pulse Resp B/P (MAP) Pulse Ox O2 Delivery O2 Flow Rate FiO2 05/01/25 08:46 97.6 74 18 141/84 (103) 91 97.6 05/01/25 08:18 Nasal Cannula* 2 28 Intake/Output Intake and Output 05/01/25 07:00 Intake Total 850 ml Balance 850 ml Intake Oral 500 ml IV Total 350 ml # Voids 5 Medications Current Medications Medications Dose Ordered Sig/Leonora Route Start Time Stop Time Status Last Admin Dose Admin Ceftriaxone Sodium 50 ml @ 100 mls/hr DAILY@2100 IV 04/30/25 21:00 04/30/25 21:14 100 MLS/HR Metronidazole 100 ml @ 100 mls/hr Q8HR IV 04/29/25 23:30 05/01/25 06:17 100 MLS/HR Hydralazine HCl 10 mg Q6HP PRN IV 04/29/25 23:15 Losartan Potassium 50 mg DAILY PO 04/30/25 10:00 Amlodipine Besylate 5 mg DAILY PO 04/30/25 10:00 Diagnostic Test (Pha) 1 strip ACHS 04/30/25 07:00 05/01/25 11:14 1 STRIP Insulin Human Regular ACHS SC 04/30/25 07:00 04/30/25 21:16 2 UNITS Dextrose 50 ml UD PRN IV 04/29/25 23:15 Sodium Chloride 1,000 ml @ 120 mls/hr Q8H20M IV 04/29/25 23:15 05/01/25 09:09 120 MLS/HR Acetaminophen/ Hydrocodone Bitart 1 tab Q4HP PRN PO 04/29/25 23:15 05/01/25 11:19 1 TAB Ondansetron HCl 4 mg Q4HP PRN IV 04/29/25 23:15 Docusate Sodium 100 mg BIDPRN PRN PO 04/29/25 23:15 Acetaminophen 650 mg Q6HP PRN PO 04/29/25 23:15 Nitroglycerin 0.4 mg Q5MINP PRN SL 04/29/25 23:15 Morphine Sulfate 2 mg Q30M PRN IV 04/29/25 23:15 Laboratory Results Laboratory Tests 04/30/25 04:20 05/01/25 06:54 Chemistry Test 05/01/25 06:54 Albumin 3.6 g/dL (3.2-4.8) Calcium Level 8.2 mg/dL (8.7-10.4) L Total Protein 6.3 g/dL (5.7-8.2) Lipid panel Test 05/01/25 06:54 Cholesterol Level 127 mg/dL (< 200) HDL Cholesterol 69 mg/dL (40-59) H Lipase 86 U/L (12-53) H Triglycerides Level 111 mg/dL (< 150) LFT Test 05/01/25 06:54 Alanine Aminotransferase (ALT) 82 U/L (7-40) H Alkaline Phosphatase 77 U/L (46-116) Aspartate Amino Transferase (AST) 50 U/L (13-40) H Total Bilirubin 0.8 mg/dL (0.2-1.0) Urinalysis Test 04/29/25 16:30 Urine Color Yellow (Yellow) Urine Clarity Turbid (Clear) H Urine pH 6.0 (5.0-9.0) Urine Specific [place] 1.038 (1.001-1.035) Urine Protein 1+ (Negative) H Urine Ketones Trace (Negative) Urine Blood Negative /uL (Negative) Urine Nitrite Negative (Negative) Urine Bilirubin 1+ (Negative) H Urine Urobilinogen 2 mg/dL (Negative) H Urine Leukocyte Esterase 2+ /uL (Negative) Urine RBC 1 /hpf (0 - 4) Urine Microscopic WBC 10 /HPF (0-5) H Urine Squamous Epithelial Cells Few /hpf (<5) Urine Bacteria Few /hpf (None Seen) H Urine Hyaline Casts Few /lpf (0 - 2) Urine Mucus Few (None Seen) Urine Glucose Trace mg/dL (Normal) Microbiology Microbiology Date/Time Source Procedure Growth Status 04/29/25 23:40 Blood Blood Culture - Preliminary NO GROWTH AFTER 24 HOURS OF INCUBATION. Resulted Labs and/or images reviewed: Labs reviewed by me, Image(s) reviewed by me Assessment/Plan Assessment/Plan Abdominal pain Acute pancreatitis NPO IV fluids pain medications Rocephin Flagyl, GI consult by Dr. Homar Mcpherson appreciated 3 mm gallstones , cholecystitis ruled out by negative HIDA scan surgical consult to Dr. Ashely Mcpherson Acute urinary tract infection: Rocephin History of cancer Hypertension History of umbilical hernia repair Spent 45 minutes Patient is full code Advanced care planning time 20 mts Plan discussed with: Patient My Orders Orders - GABRIEL AMAYA MD Procedure Category Date Status Time * Gi [employer] CONS 04/30/25 Transmitted 13:27 Npo (Nothing By DIET 04/30/25 Transmitted Mouth) Diet Lunch Gallbladder US 04/30/25 Resulted 14:24 Date of Service: May 01, 2025 Billing Provider: GABRIEL AMAYA MD Common Visit Codes: [id number] INP/OBS CARE(HIGH) GABRIEL AMAYA MD May 01, 2025 11:46
--- NOTE | 2025-05-01 14:54 | DVHINCON2 ---
Date of service: May 01, 2025 Family History: Diabetes mellitus G8 MOTHER FH: heart failure G8 FATHER Hypertension G8 FATHER Allergies: Coded Allergies: NO KNOWN ALLERGIES (Unverified , 04/29/25) Home Meds Reported Medications Cholecalciferol (Vitamin D) 400 Unit Cap, 500 UNIT PO BID, CAP 04/30/25 Duloxetine HCl (Duloxetine HCl) 60 Mg Cap, 60 MG PO DAILY, CAP 04/30/25 Lisinopril (Lisinopril) 10 Mg Tab, 10 MG PO DAILY for 30 Days, MG 04/30/25 Atorvastatin Calcium (ATORVASTATIN CALCIUM) 40 Mg Tab, 1 TAB PO QPM, #90 TAB 3 Refills 04/30/25 Current Medications Current Medications Medications (Trade) Dose Ordered Sig/Leonora Route PRN Reason Start Time Stop Time Status Last Admin Ceftriaxone Sodium 50 ml @ 100 mls/hr DAILY@2100 IV 04/30/25 21:00 04/30/25 21:14 Vital Signs Vital Signs Date Time Temp Pulse Resp B/P (MAP) Pulse Ox O2 Delivery O2 Flow Rate FiO2 05/01/25 08:46 97.6 74 18 141/84 (103) 91 97.6 05/01/25 08:18 Nasal Cannula* 2 28 Labs/Diagnostic Data Labs Test 05/01/25 06:54 05/01/25 06:18 04/30/25 04:20 04/29/25 16:30 Range/Units Sodium Level 137 136-145 mmol/L Potassium Level 3.4 L 3.5-5.1 mmol/L Chloride Level 99 98-107 mmol/L Carbon Dioxide Level 30 20-31 mmol/L Anion Gap 8 5-15 Blood Urea Nitrogen 12 9-23 mg/dL Creatinine 0.49 #L 0.550-1.02 mg/dL Glomerular Filtration Rate Calc 102 >90 mL/min BUN/Creatinine Ratio 24.5 H 10.0-20.0 Serum Glucose 107 H 74-106 mg/dL Calcium Level 8.2 L 8.7-10.4 mg/dL Total Bilirubin 0.8 0.2-1.0 mg/dL Aspartate Amino Transferase (AST) 50 H 13-40 U/L Alanine Aminotransferase (ALT) 82 H 7-40 U/L Alkaline Phosphatase 77 46-116 U/L Total Protein 6.3 5.7-8.2 g/dL Albumin 3.6 3.2-4.8 g/dL Triglycerides Level 111 < 150 mg/dL Cholesterol Level 127 < 200 mg/dL LDL Cholesterol 39 < 100 mg/dL HDL Cholesterol 69 H 40-59 mg/dL Lipase 86 H 12-53 U/L POC Glucose 115 H 70-106 mg/dl White Blood Count 15.3 H 4.4-10.8 10^3/uL Red Blood Count 5.77 H 4.0-5.20 10^6/uL Hemoglobin 15.7 12.2-16.2 g/dL Hematocrit 47.6 H 36.0-46.0 % Mean Corpuscular Volume 82.5 80.0-100.0 fL Mean Corpuscular Hemoglobin 27.3 L 28.0-32.0 pg Mean Corpuscular Hemoglobin Concent 33.1 32.0-36.0 g/dL Red Cell Distribution Width 16.2 H 11.8-14.3 % Platelet Count 171 140-450 10^3/uL Mean Platelet Volume 8.2 6.9-10.8 fL Neutrophils (%) (Auto) 88.4 H 37.0-80.0 % Lymphocytes (%) (Auto) 7.4 L 10.0-50.0 % Monocytes (%) (Auto) 4.1 0.0-12.0 % Eosinophils (%) (Auto) 0.0 0.0-7.0 % Basophils (%) (Auto) 0.1 0.0-2.0 % Neutrophils # (Auto) 13.5 H 1.6-8.6 10 ^3/uL Lymphocytes # (Auto) 1.1 0.4-5.4 10 ^3/uL Monocytes # (Auto) 0.6 0-1.3 10 ^3/uL Eosinophils # (Auto) 0 0-0.8 10 ^3/uL Basophils # (Auto) 0 0-0.2 10 ^3/uL Nucleated Red Blood Cells 0.1 % Troponin I High Sensitivity 4 </=34 ng/L Urine Color Yellow Yellow Urine Clarity Turbid H Clear Urine pH 6.0 5.0-9.0 Urine Specific [place] 1.038 H 1.001-1.035 Urine Protein 1+ H Negative Urine Ketones Trace Negative Urine Blood Negative Negative /uL Urine Nitrite Negative Negative Urine Bilirubin 1+ H Negative Urine Urobilinogen 2 H Negative mg/dL Urine Leukocyte Esterase 2+ Negative /uL Urine RBC 1 0 - 4 /hpf Urine Microscopic WBC 10 H 0-5 /HPF Urine Squamous Epithelial Cells Few <5 /hpf Urine Bacteria Few H None Seen /hpf Urine Hyaline Casts Few 0 - 2 /lpf Urine Mucus Few None Seen Urine Glucose Trace Normal mg/dL Test 04/29/25 16:09 Range/Units Hemoglobin A1c 5.4 <5.7 % A1C Lactic Acid Level 1.3 0.4-2.0 mmol/L Microbiology Date/Time Source Procedure Growth Status 04/29/25 23:40 Blood Blood Culture - Preliminary NO GROWTH AFTER 24 HOURS OF INCUBATION. Resulted 04/29/25 16:30 Voided Urine Urine Culture - Preliminary Resulted Assessment [id number] C/O RUQ PAIN AFEBRILE VSS ABD SOFT TENDER RUQ AC GALLSTONE PANCREATITIS ALLOW PANCREATITIS TO RESOLVE AND CONSIDER EMERGENT/ELECTIVE GB SURGERY BASED ON ONGOING EVAL Plan discussed with: Patient JOSE MANUEL BENÍTEZ MD May 01, 2025 14:54
--- NOTE | 2025-05-01 18:27 | DVHINCON2 ---
DATE OF CONSULTATION: 05/01/2025 HISTORY OF PRESENT ILLNESS: This patient is 70 years old coming in with upper abdominal pain, some nausea. No vomiting. No constipation or diarrhea. No hematemesis or melena. No bleeding per rectum. PAST MEDICAL HISTORY: Diabetes. PAST SURGICAL HISTORY: SENIOR ANALYTICAL CHEMIST surgery. PHYSICAL EXAMINATION: VITAL SIGNS: Afebrile, stable signs. HEENT: No evidence of pallor, cyanosis, or jaundice. NECK: Supple and nontender with no thyromegaly or lymphadenopathy. CHEST AND LUNGS: Clear. HEART: Within normal limits. ABDOMEN: Soft. Tender in the upper abdomen. No rebound. EXTREMITIES: Unremarkable. NEUROLOGICAL: Intact. LABORATORY DATA: Liver enzymes are mildly elevated. Lipase is elevated. CLINICAL IMPRESSION: Acute gallstone induced pancreatitis. PLAN: Consider keeping her n.p.o. to allow the pancreatitis to resolve and then consider emergent or elective gallbladder surgery based upon ongoing evaluation. MD EVY Kang/TANNA/ADRIANO TID: [id number] RECEIPT: [id number] cc:
--- NOTE | 2025-05-01 22:26 | DVHPN2 ---
Progress Note - Dictate Date Seen: May 01, 2025 Medical Necessity Reason Pt with a Central, PICC or Fol: No Subjective No new complaints Sleeping comfortably Liver enzymes and lipase trending downwards vital signs Vital Sign Date Time Temp Pulse Resp B/P (MAP) Pulse Ox O2 Delivery O2 Flow Rate FiO2 05/01/25 21:00 97.4 82 17 139/77 (97) 94 97.4 05/01/25 08:18 Nasal Cannula* 2 28 Total Intake and Output 04/30/25 04/30/25 05/01/25 15:00 23:00 07:00 Intake Total 100 ml 550 ml 200 ml Balance 100 ml 550 ml 200 ml medications Current Medications Medications Dose Ordered Sig/Leonora Route Start Time Stop Time Status Last Admin Dose Admin Ceftriaxone Sodium 50 ml @ 100 mls/hr DAILY@2100 IV 04/30/25 21:00 05/01/25 21:27 100 MLS/HR Metronidazole 100 ml @ 100 mls/hr Q8HR IV 04/29/25 23:30 05/01/25 14:49 100 MLS/HR Hydralazine HCl 10 mg Q6HP PRN IV 04/29/25 23:15 Losartan Potassium 50 mg DAILY PO 04/30/25 10:00 Amlodipine Besylate 5 mg DAILY PO 04/30/25 10:00 Diagnostic Test (Pha) 1 strip ACHS 04/30/25 07:00 05/01/25 21:19 1 STRIP Insulin Human Regular ACHS SC 04/30/25 07:00 04/30/25 21:16 2 UNITS Dextrose 50 ml UD PRN IV 04/29/25 23:15 Sodium Chloride 1,000 ml @ 120 mls/hr Q8H20M IV 04/29/25 23:15 05/01/25 17:21 120 MLS/HR Acetaminophen/ Hydrocodone Bitart 1 tab Q4HP PRN PO 04/29/25 23:15 05/01/25 21:26 1 TAB Ondansetron HCl 4 mg Q4HP PRN IV 04/29/25 23:15 Docusate Sodium 100 mg BIDPRN PRN PO 04/29/25 23:15 Acetaminophen 650 mg Q6HP PRN PO 04/29/25 23:15 Nitroglycerin 0.4 mg Q5MINP PRN SL 04/29/25 23:15 Morphine Sulfate 2 mg Q30M PRN IV 04/29/25 23:15 objective General Appearance: Alert, Oriented X3, Cooperative, No acute distress HEENT: Atraumatic, PERRLA, EOMI, Mucous membr. moist/pink Respiratory: Clear to auscultation, Normal air movement Cardiovascular: Regular rate, Normal S1, Normal S2, No murmurs Abdominal: Normal bowel sounds, Soft, No hepatospenomegaly, No masses, Other (Reports tenderness) Extremities: No clubbing, No cyanosis, No edema, Normal pulses, No tenderness/swelling Skin: No rashes, No breakdown, No significant lesion Neuro: Normal gait, Normal speech, Strength at 5/5 X4 ext, Normal tone, Sensation intact, Cranial nerves 3-12 NL, Reflexes 2+ Psych/Mental Status: Mental status NL, Mood NL laboratory and microbiology Laboratory Tests 05/01/25 06:54 04/30/25 04:20 Test 05/01/25 06:54 Range/Units Serum Glucose 107 H 74-106 mg/dL Problems(with codes): (1) Cholelithiasis (2) Intractable nausea and vomiting (3) Leukocytosis, unspecified (4) Acute pancreatitis (5) Hypertensive urgency (6) Urinary tract infection Prognosis Plan Patient is currently NPO on IV fluid hydration Patient is on broad-spectrum antibiotics Check urine culture; greater than [id number] colony count Gram-negative rods lipid profile normal Surgical consult appreciated, elective cholecystectomy once pancreatitis resolves Continue to monitor labs, check lipid profile I will follow up patient with you Plan discussed with: Patient, Daughter AALIYAH BENÍTEZ MD May 01, 2025 22:26
[2025-05-02] VITALS (8 sets, daily range): BP systolic 133–150; BP diastolic 71–82; PULSE 76–98; RESP 17–18; TEMP 97.6–98.8; O2SAT 93–96
[2025-05-02 05:43] LABS: Albumin 3.6 g/dL (3.2-4.8); Alkaline Phosphatase 71 U/L (46-116); Anion Gap 11 (5-15); BUN/Creatinine Ratio 22.9 (10.0-20.0); Bilirubin, Total 0.6 mg/dL (0.2-1.0); Blood Urea Nitrogen 11 mg/dL (9-23); Carbon Dioxide 28 mmol/L (20-31); Chloride 102 mmol/L (98-107); Glucose 86 mg/dL (74-106); Potassium 3.5 mmol/L (3.5-5.1); Sodium 141 mmol/L (136-145); Total Protein 6.2 g/dL (5.7-8.2)
[2025-05-02 05:51] LABS: Hematocrit 34.1 % (36.0-46.0); Hemoglobin 11.7 g/dL (12.2-16.2); Mean Corpuscular Hemoglobin 27.4 pg (28.0-32.0); Mean Corpuscular Volume 80.2 fL (80.0-100.0); Nucleated Red Blood Cells % 0.0 %
[2025-05-02 05:54] LABS: Alanine Aminotransferase 56 U/L (7-40); Calcium 8.2 mg/dL (8.7-10.4)
[2025-05-02 06:35] LABS: Lipase 51 U/L (12-53)
--- NOTE | 2025-05-02 09:32 | DVHPN2 ---
Reviewed: Care Plan, H&P, Labs, Medications, Previous Orders, Radiology Changes from previous H/P or p: No Changes Eyes: No Pain, No Vision change, No Conjunctivae inflammation, No Eyelid inflammation, No Other, No Redness ENT: No Ear pain, No Ear discharge, No Nose pain, No Nose discharge, No Nose congestion, No Mouth pain, No Mouth swelling, No Throat pain, No Throat swelling, No Other Cardiovascular: No Chest Pain, No Palpitations, No Orthopnea, No Paroxysmal Noc. Dyspnea, No Edema, No Lt Headedness, No Other Respiratory: No Cough, No Dry, No Shortness of breath, No SOB with excertion, No Wheezing, No Hemoptysis, No Pleuritic Pain, No Sputum, No Other Gastrointestinal: Nausea, Vomiting, Abdominal Pain; No Diarrhea, No Constipation, No Melena, No Hematochezia, No Other Genitourinary: No Dysuria, No Frequency, No Incontinence, No Hematuria, No Retention, No Other Musculoskeletal: No other, No neck pain, No shoulder pain, No arm pain, No back pain, No hand pain, No leg pain, No foot pain Skin: No Rash, No Lesions, No Jaundice, No Bruising, No Other Objective Vitals Vital Signs Date Time Temp Pulse Resp B/P (MAP) Pulse Ox O2 Delivery O2 Flow Rate FiO2 05/02/25 09:24 98.2 79 18 146/76 (99) 93 98.2 05/01/25 20:00 Nasal Cannula* 2 28 Intake/Output Intake and Output 05/02/25 07:00 Intake Total 150 ml Balance 150 ml Intake Oral 0 ml IV Total 150 ml # Voids 3 Medications Current Medications Medications Dose Ordered Sig/Leonora Route Start Time Stop Time Status Last Admin Dose Admin Ceftriaxone Sodium 50 ml @ 100 mls/hr DAILY@2100 IV 04/30/25 21:00 05/01/25 21:27 100 MLS/HR Metronidazole 100 ml @ 100 mls/hr Q8HR IV 04/29/25 23:30 05/02/25 05:28 100 MLS/HR Hydralazine HCl 10 mg Q6HP PRN IV 04/29/25 23:15 Losartan Potassium 50 mg DAILY PO 04/30/25 10:00 Amlodipine Besylate 5 mg DAILY PO 04/30/25 10:00 Diagnostic Test (Pha) 1 strip ACHS 04/30/25 07:00 05/02/25 06:32 1 STRIP Insulin Human Regular ACHS SC 04/30/25 07:00 04/30/25 21:16 2 UNITS Dextrose 50 ml UD PRN IV 04/29/25 23:15 Sodium Chloride 1,000 ml @ 120 mls/hr Q8H20M IV 04/29/25 23:15 05/02/25 01:15 120 MLS/HR Acetaminophen/ Hydrocodone Bitart 1 tab Q4HP PRN PO 04/29/25 23:15 05/02/25 06:36 1 TAB Ondansetron HCl 4 mg Q4HP PRN IV 04/29/25 23:15 Docusate Sodium 100 mg BIDPRN PRN PO 04/29/25 23:15 Acetaminophen 650 mg Q6HP PRN PO 04/29/25 23:15 Nitroglycerin 0.4 mg Q5MINP PRN SL 04/29/25 23:15 Morphine Sulfate 2 mg Q30M PRN IV 04/29/25 23:15 Laboratory Results Laboratory Tests 05/02/25 05:07 Chemistry Test 05/02/25 05:07 Albumin 3.6 g/dL (3.2-4.8) Calcium Level 8.2 mg/dL (8.7-10.4) L Total Protein 6.2 g/dL (5.7-8.2) Lipid panel Test 05/02/25 05:07 Lipase 51 U/L (12-53) LFT Test 05/02/25 05:07 Alanine Aminotransferase (ALT) 56 U/L (7-40) H Alkaline Phosphatase 71 U/L (46-116) Aspartate Amino Transferase (AST) 32 U/L (13-40) Total Bilirubin 0.6 mg/dL (0.2-1.0) Urinalysis Test 04/29/25 16:30 Urine Color Yellow (Yellow) Urine Clarity Turbid (Clear) H Urine pH 6.0 (5.0-9.0) Urine Specific [place] 1.038 (1.001-1.035) Urine Protein 1+ (Negative) H Urine Ketones Trace (Negative) Urine Blood Negative /uL (Negative) Urine Nitrite Negative (Negative) Urine Bilirubin 1+ (Negative) H Urine Urobilinogen 2 mg/dL (Negative) H Urine Leukocyte Esterase 2+ /uL (Negative) Urine RBC 1 /hpf (0 - 4) Urine Microscopic WBC 10 /HPF (0-5) H Urine Squamous Epithelial Cells Few /hpf (<5) Urine Bacteria Few /hpf (None Seen) H Urine Hyaline Casts Few /lpf (0 - 2) Urine Mucus Few (None Seen) Urine Glucose Trace mg/dL (Normal) Microbiology Microbiology Date/Time Source Procedure Growth Status 04/29/25 23:40 Blood Blood Culture - Preliminary NO GROWTH AFTER 48 HOURS OF INCUBATION. Resulted 04/29/25 16:30 Voided Urine Urine Culture - Preliminary Resulted Labs and/or images reviewed: Labs reviewed by me, Image(s) reviewed by me Assessment/Plan Assessment/Plan Acute Abdominal pain Acute pancreatitis NPO IV fluids pain medications Rocephin Flagyl, GI consult by Dr. Homar Mcpherson appreciated, lipase down from 86 to 51 3 mm gallstones , cholecystitis ruled out by negative HIDA scan surgical consult to Dr. Ashely Mcpherson appreciated, advised conservative management for the present Acute urinary tract infection: Blood cultures negative, urine cultures growing Gram-negative rods, continue Rocephin History of cancer Hypertension History of umbilical hernia repair Spent 45 minutes Patient is full code Plan discussed with: Patient My Orders Orders - GABRIEL AMAYA MD Procedure Category Date Status Time * Surgical Consult CONS 05/01/25 Transmitted 11:46 Date of Service: May 02, 2025 Billing Provider: GABRIEL AMAYA MD Common Visit Codes: [id number] INP/OBS CARE(HIGH) GABRIEL AMAYA MD May 02, 2025 09:32
--- NOTE | 2025-05-02 16:52 | DVHPN2 ---
Progress Note Date Seen: May 02, 2025 Medical Necessity Reason Pt with a Central, PICC or Fol: No Objective vital signs Vital Sign Date Time Temp Pulse Resp B/P (MAP) Pulse Ox O2 Delivery O2 Flow Rate FiO2 05/02/25 13:42 98.8 79 18 137/82 (100) 94 98.8 05/02/25 08:00 Room Air* 0 21 Total Intake and Output 05/01/25 05/01/25 05/02/25 15:00 23:00 07:00 Intake Total 0 ml 50 ml 100 ml Balance 0 ml 50 ml 100 ml medications Current Medications Medications Dose Ordered Sig/Leonora Route Start Time Stop Time Status Last Admin Dose Admin Ceftriaxone Sodium 50 ml @ 100 mls/hr DAILY@2100 IV 04/30/25 21:00 05/01/25 21:27 100 MLS/HR Metronidazole 100 ml @ 100 mls/hr Q8HR IV 04/29/25 23:30 05/02/25 05:28 100 MLS/HR Hydralazine HCl 10 mg Q6HP PRN IV 04/29/25 23:15 Losartan Potassium 50 mg DAILY PO 04/30/25 10:00 05/02/25 10:54 50 MG Amlodipine Besylate 5 mg DAILY PO 04/30/25 10:00 05/02/25 10:54 5 MG Diagnostic Test (Pha) 1 strip ACHS 04/30/25 07:00 05/02/25 11:30 1 STRIP Insulin Human Regular ACHS SC 04/30/25 07:00 04/30/25 21:16 2 UNITS Dextrose 50 ml UD PRN IV 04/29/25 23:15 Sodium Chloride 1,000 ml @ 120 mls/hr Q8H20M IV 04/29/25 23:15 05/02/25 09:35 120 MLS/HR Acetaminophen/ Hydrocodone Bitart 1 tab Q4HP PRN PO 04/29/25 23:15 05/02/25 10:53 1 TAB Ondansetron HCl 4 mg Q4HP PRN IV 04/29/25 23:15 Docusate Sodium 100 mg BIDPRN PRN PO 04/29/25 23:15 Acetaminophen 650 mg Q6HP PRN PO 04/29/25 23:15 Nitroglycerin 0.4 mg Q5MINP PRN SL 04/29/25 23:15 Morphine Sulfate 2 mg Q30M PRN IV 04/29/25 23:15 laboratory and microbiology Laboratory Tests 05/02/25 05:07 Test 05/02/25 05:07 Range/Units Serum Glucose 86 74-106 mg/dL Microbiology Date/Time Source Procedure Growth Status 04/29/25 23:40 Blood Blood Culture - Preliminary NO GROWTH AFTER 48 HOURS OF INCUBATION. Resulted 04/29/25 16:30 Voided Urine Urine Culture - Final Complete Problem List/Assessment/Plan Problem List/Assessment/Plan AFEBRILE VSS ABD SOFT TENDER RUQ LIPASE TRENDING DOWN HIDA SCAN NEG FOR AC CYSTIC DUCT OBSTRUCTION CONTINUE NPO CLOSE OBSERVATION REPEAT LABS AM Plan discussed with: Patient JOSE MANUEL BENÍTEZ MD May 02, 2025 16:52
[2025-05-02] MEDS: HYDROmorphone HCL 2 MG/ML VL/or syr IV PRN (17:35)
--- NOTE | 2025-05-02 20:41 | DVHPN2 ---
Progress Note - Dictate Date Seen: May 02, 2025 Medical Necessity Reason Pt with a Central, PICC or Fol: No Subjective No new complaints Liver enzymes trending downwards and lipase is normal HIDA scan is negative vital signs Vital Sign Date Time Temp Pulse Resp B/P (MAP) Pulse Ox O2 Delivery O2 Flow Rate FiO2 05/02/25 18:05 79 18 130/68 05/02/25 16:48 98.5 93 98.5 05/02/25 08:00 Room Air* 0 21 Total Intake and Output 05/01/25 05/01/25 05/02/25 15:00 23:00 07:00 Intake Total 0 ml 50 ml 100 ml Balance 0 ml 50 ml 100 ml medications Current Medications Medications Dose Ordered Sig/Leonora Route Start Time Stop Time Status Last Admin Dose Admin Ceftriaxone Sodium 50 ml @ 100 mls/hr DAILY@2100 IV 04/30/25 21:00 05/01/25 21:27 100 MLS/HR Metronidazole 100 ml @ 100 mls/hr Q8HR IV 04/29/25 23:30 05/02/25 17:03 100 MLS/HR Hydralazine HCl 10 mg Q6HP PRN IV 04/29/25 23:15 Losartan Potassium 50 mg DAILY PO 04/30/25 10:00 05/02/25 10:54 50 MG Amlodipine Besylate 5 mg DAILY PO 04/30/25 10:00 05/02/25 10:54 5 MG Diagnostic Test (Pha) 1 strip ACHS 04/30/25 07:00 05/02/25 17:04 1 STRIP Insulin Human Regular ACHS SC 04/30/25 07:00 04/30/25 21:16 2 UNITS Dextrose 50 ml UD PRN IV 04/29/25 23:15 Sodium Chloride 1,000 ml @ 120 mls/hr Q8H20M IV 04/29/25 23:15 05/02/25 09:35 120 MLS/HR Acetaminophen/ Hydrocodone Bitart 1 tab Q4HP PRN PO 04/29/25 23:15 05/02/25 10:53 1 TAB Ondansetron HCl 4 mg Q4HP PRN IV 04/29/25 23:15 Docusate Sodium 100 mg BIDPRN PRN PO 04/29/25 23:15 Acetaminophen 650 mg Q6HP PRN PO 04/29/25 23:15 Nitroglycerin 0.4 mg Q5MINP PRN SL 04/29/25 23:15 Morphine Sulfate 2 mg Q30M PRN IV 04/29/25 23:15 Hydromorphone HCl 0.25 mg Q4HPRN PRN IV 05/02/25 17:00 05/02/25 17:35 0.25 MG objective General Appearance: Alert, Oriented X3, Cooperative, No acute distress HEENT: Atraumatic, PERRLA, EOMI, Mucous membr. moist/pink Respiratory: Clear to auscultation, Normal air movement Cardiovascular: Regular rate, Normal S1, Normal S2, No murmurs Abdominal: Normal bowel sounds, Soft, No hepatospenomegaly, No masses, Other (Reports tenderness) Extremities: No clubbing, No cyanosis, No edema, Normal pulses, No tenderness/swelling Skin: No rashes, No breakdown, No significant lesion Neuro: Normal gait, Normal speech, Strength at 5/5 X4 ext, Normal tone, Sensation intact, Cranial nerves 3-12 NL, Reflexes 2+ Psych/Mental Status: Mental status NL, Mood NL laboratory and microbiology Laboratory Tests 05/02/25 05:07 Test 05/02/25 05:07 Range/Units Serum Glucose 86 74-106 mg/dL Problems(with codes): (1) Cholelithiasis (2) Intractable nausea and vomiting (3) Leukocytosis, unspecified (4) Acute abdominal pain (5) Pancreatic necrosis (6) Acute pancreatitis Prognosis Plan Start clear liquid diet advance as tolerated Surgical follow up to discuss timing of elective cholecystectomy Supportive care, IV fluid hydration;IV abx and pain control for now Plan discussed with: Other (Dr Ashely Mcpherson) AALIYAH MCPHERSON MD May 02, 2025 20:41
[2025-05-03] VITALS (8 sets, daily range): BP systolic 133–153; BP diastolic 67–90; PULSE 77–104; RESP 14–18; TEMP 97.3–99.3; O2SAT 93–99
[2025-05-03 06:00] LABS: Hemoglobin 11.3 g/dL (12.2-16.2); Nucleated Red Blood Cells % 0.0 %
[2025-05-03 06:04] LABS: Hematocrit 33.9 % (36.0-46.0); Mean Corpuscular Hemoglobin 27.0 pg (28.0-32.0); Mean Corpuscular Volume 81.0 fL (80.0-100.0)
[2025-05-03 06:24] LABS: Alanine Aminotransferase 40 U/L (7-40); Albumin 3.5 g/dL (3.2-4.8); Alkaline Phosphatase 75 U/L (46-116); Anion Gap 13 (5-15); BUN/Creatinine Ratio 27.0 (10.0-20.0); Blood Urea Nitrogen 10 mg/dL (9-23); Carbon Dioxide 25 mmol/L (20-31); Chloride 106 mmol/L (98-107); Glucose 79 mg/dL (74-106); Lipase 29 U/L (12-53); Sodium 144 mmol/L (136-145); Total Protein 6.2 g/dL (5.7-8.2)
[2025-05-03 06:25] LABS: Bilirubin, Total 0.6 mg/dL (0.2-1.0)
[2025-05-03 06:30] LABS: Calcium 8.4 mg/dL (8.7-10.4); Potassium 3.2 mmol/L (3.5-5.1)
--- NOTE | 2025-05-03 08:44 | DVHPN2 ---
Reviewed: Care Plan, H&P, Labs, Medications, Previous Orders, Radiology Changes from previous H/P or p: No Changes Eyes: No Pain, No Vision change, No Conjunctivae inflammation, No Eyelid inflammation, No Other, No Redness ENT: No Ear pain, No Ear discharge, No Nose pain, No Nose discharge, No Nose congestion, No Mouth pain, No Mouth swelling, No Throat pain, No Throat swelling, No Other Cardiovascular: No Chest Pain, No Palpitations, No Orthopnea, No Paroxysmal Noc. Dyspnea, No Edema, No Lt Headedness, No Other Respiratory: No Cough, No Dry, No Shortness of breath, No SOB with excertion, No Wheezing, No Hemoptysis, No Pleuritic Pain, No Sputum, No Other Gastrointestinal: Nausea, Vomiting, Abdominal Pain; No Diarrhea, No Constipation, No Melena, No Hematochezia, No Other Genitourinary: No Dysuria, No Frequency, No Incontinence, No Hematuria, No Retention, No Other Musculoskeletal: No other, No neck pain, No shoulder pain, No arm pain, No back pain, No hand pain, No leg pain, No foot pain Skin: No Rash, No Lesions, No Jaundice, No Bruising, No Other Objective Vitals Vital Signs Date Time Temp Pulse Resp B/P (MAP) Pulse Ox O2 Delivery O2 Flow Rate FiO2 05/03/25 05:00 97.8 85 17 142/85 (104) 94 97.8 05/02/25 20:00 Nasal Cannula* 2 28 Intake/Output Intake and Output 05/03/25 07:00 Intake Total 1550 ml Balance 1550 ml Intake Oral 500 ml IV Total 1050 ml # Voids 5 # Bowel Movements 1 Medications Current Medications Medications Dose Ordered Sig/Leonora Route Start Time Stop Time Status Last Admin Dose Admin Ceftriaxone Sodium 50 ml @ 100 mls/hr DAILY@2100 IV 04/30/25 21:00 05/02/25 20:52 100 MLS/HR Metronidazole 100 ml @ 100 mls/hr Q8HR IV 04/29/25 23:30 05/03/25 05:57 100 MLS/HR Hydralazine HCl 10 mg Q6HP PRN IV 04/29/25 23:15 Losartan Potassium 50 mg DAILY PO 04/30/25 10:00 05/02/25 10:54 50 MG Amlodipine Besylate 5 mg DAILY PO 04/30/25 10:00 05/02/25 10:54 5 MG Diagnostic Test (Pha) 1 strip ACHS 04/30/25 07:00 05/03/25 06:56 1 STRIP Insulin Human Regular ACHS SC 04/30/25 07:00 04/30/25 21:16 2 UNITS Dextrose 50 ml UD PRN IV 04/29/25 23:15 Sodium Chloride 1,000 ml @ 120 mls/hr Q8H20M IV 04/29/25 23:15 05/02/25 23:14 120 MLS/HR Acetaminophen/ Hydrocodone Bitart 1 tab Q4HP PRN PO 04/29/25 23:15 05/02/25 10:53 1 TAB Ondansetron HCl 4 mg Q4HP PRN IV 04/29/25 23:15 Docusate Sodium 100 mg BIDPRN PRN PO 04/29/25 23:15 Acetaminophen 650 mg Q6HP PRN PO 04/29/25 23:15 Nitroglycerin 0.4 mg Q5MINP PRN SL 04/29/25 23:15 Morphine Sulfate 2 mg Q30M PRN IV 04/29/25 23:15 Hydromorphone HCl 0.25 mg Q4HPRN PRN IV 05/02/25 17:00 05/03/25 03:41 0.25 MG Laboratory Results Laboratory Tests 05/03/25 05:01 Chemistry Test 05/03/25 05:01 Albumin 3.5 g/dL (3.2-4.8) Calcium Level 8.4 mg/dL (8.7-10.4) L Total Protein 6.2 g/dL (5.7-8.2) Lipid panel Test 05/03/25 05:01 Lipase 29 U/L (12-53) LFT Test 05/03/25 05:01 Alanine Aminotransferase (ALT) 40 U/L (7-40) Alkaline Phosphatase 75 U/L (46-116) Aspartate Amino Transferase (AST) 21 U/L (13-40) Total Bilirubin 0.6 mg/dL (0.2-1.0) Urinalysis Test 04/29/25 16:30 Urine Color Yellow (Yellow) Urine Clarity Turbid (Clear) H Urine pH 6.0 (5.0-9.0) Urine Specific [place] 1.038 (1.001-1.035) Urine Protein 1+ (Negative) H Urine Ketones Trace (Negative) Urine Blood Negative /uL (Negative) Urine Nitrite Negative (Negative) Urine Bilirubin 1+ (Negative) H Urine Urobilinogen 2 mg/dL (Negative) H Urine Leukocyte Esterase 2+ /uL (Negative) Urine RBC 1 /hpf (0 - 4) Urine Microscopic WBC 10 /HPF (0-5) H Urine Squamous Epithelial Cells Few /hpf (<5) Urine Bacteria Few /hpf (None Seen) H Urine Hyaline Casts Few /lpf (0 - 2) Urine Mucus Few (None Seen) Urine Glucose Trace mg/dL (Normal) Microbiology Microbiology Date/Time Source Procedure Growth Status 04/29/25 23:40 Blood Blood Culture - Preliminary NO GROWTH AFTER 72 HOURS OF INCUBATION. Resulted 04/29/25 16:30 Voided Urine Urine Culture - Final Complete Labs and/or images reviewed: Labs reviewed by me, Image(s) reviewed by me Assessment/Plan Assessment/Plan Acute Abdominal pain Acute pancreatitis NPO IV fluids pain medications Rocephin Flagyl, GI consult by Dr. Homar Mcpherson appreciated, lipase down from 86 to 51 3 mm gallstones , cholecystitis ruled out by negative HIDA scan surgical consult to Dr. Ashely Mcpherson appreciated, advised conservative management for the present Acute urinary tract infection: Blood cultures negative, urine cultures growing Gram-negative rods, continue Rocephin History of cancer Hypertension History of umbilical hernia repair Spent 45 minutes Patient is full code Surgeon Dr. Ashely Mcpherson ordered repeat CT abdomen pelvis with oral contrast Plan discussed with: Patient Date of Service: May 03, 2025 Billing Provider: GABRIEL AMAYA MD Common Visit Codes: [id number] INP/OBS CARE(HIGH) GABRIEL AMAYA MD May 03, 2025 08:44
[2025-05-03] MEDS: OMNIPAQUE 12mg/ml 500ml ORAL SOLUTION PO ONE (08:59)
--- NOTE | 2025-05-03 11:41 | DVH ---
Exam: CT CT AB PEL WITH ORAL CON ONLY History: Acute abdominal pain with gallstones rule out cholecystitis Comparison Study: CT CT AB PEL WITH IV CON ONLY on DOS: 04/29/25 TECHNIQUE: Multidetector CT of the abdomen was performed from lung bases to pubic symphysis. Imaging was performed without IV contrast. Axial, coronal and sagittal multiplanar reformats were obtained fr om the axial data set by the technologist. Radiation Dose Information: CT Dose: CTDI volume is 21.48 mGy. Dose-length product is 1247.39 mGy*cm Radiation optimization: All CT scans at this facility use at least one of these dose optimization flakita hniques: automated exposure control mA and/or kV adjustment per patient size (includes targeted exams where dose is matched to clinical indication) or iterative reconstruction. FINDINGS: Evaluation of solid organs is limited due to lack of intravenous contrast use. Findings: Lung Bases: Minimal right-sided pleural effusion and right greater than left bibasilar atelectasis Liver: The liver is normal in size. No focal lesions. Gallbladder and biliary Tree: Large calcified gallstone with no significant distention of the gallbla dder. Spleen: Unremarkable Pancreas: Inflammatory changes centered around the pancreatic head and uncinate process with no perip ancreatic organized fluid collection. Limited assessment of the pancreatic parenchyma in the absenc e of by contrast Adrenal Glands: Unremarkable Kidneys: Kidneys are grossly normal without calculi or hydronephrosis. Bladder: Grossly unremarkable for degree of distention. Bowel: The stomach is grossly normal in appearance. Small bowel and colon are normal in caliber and d istribution. The appendix is not visualized; however, no secondary findings of acute appendicitis thalia ntified. Ascites: Absent Lymphadenopathy: No mesenteric, retroperitoneal or periportal lymphadenopathy. Abdominal wall and Mesentery: Fatty stranding in central mesentery Vasculature: The visualized abdominal aorta is normal in size and caliber. Evaluation of abdominal an d pelvic vessels is limited due to lack of intravenous contrast. Pelvic Organs: The uterus is surgically absent. Musculoskeletal: No aggressive focal bony lesions, acute fractures or dislocation. Soft tissues: Unremarkable IMPRESSION: 1. Large calcified gallstone without evidence of acute cholecystitis. 2. Acute pancreatitis. No organized peripancreatic fluid collection. Limited assessment of the pancre atic parenchyma in the absence of IV contrast.
--- NOTE | 2025-05-03 21:45 | DVHPN2 ---
Progress Note Date Seen: May 03, 2025 Medical Necessity Reason Pt with a Central, PICC or Fol: No Objective vital signs Vital Sign Date Time Temp Pulse Resp B/P (MAP) Pulse Ox O2 Delivery O2 Flow Rate FiO2 05/03/25 17:00 99.3 79 18 141/67 (91) 99 99.3 05/03/25 08:00 Room Air* 0 21 Total Intake and Output 05/02/25 05/02/25 05/03/25 15:00 23:00 07:00 Intake Total 50 ml 1500 ml Balance 50 ml 1500 ml medications Current Medications Medications Dose Ordered Sig/Leonora Route Start Time Stop Time Status Last Admin Dose Admin Ceftriaxone Sodium 50 ml @ 100 mls/hr DAILY@2100 IV 04/30/25 21:00 05/03/25 20:52 100 MLS/HR Metronidazole 100 ml @ 100 mls/hr Q8HR IV 04/29/25 23:30 05/03/25 14:00 100 MLS/HR Hydralazine HCl 10 mg Q6HP PRN IV 04/29/25 23:15 Losartan Potassium 50 mg DAILY PO 04/30/25 10:00 05/03/25 10:22 50 MG Amlodipine Besylate 5 mg DAILY PO 04/30/25 10:00 05/03/25 10:00 5 MG Diagnostic Test (Pha) 1 strip ACHS 04/30/25 07:00 05/03/25 21:13 1 STRIP Insulin Human Regular ACHS SC 04/30/25 07:00 05/03/25 21:12 3 UNITS Dextrose 50 ml UD PRN IV 04/29/25 23:15 Sodium Chloride 1,000 ml @ 120 mls/hr Q8H20M IV 04/29/25 23:15 05/02/25 23:14 120 MLS/HR Acetaminophen/ Hydrocodone Bitart 1 tab Q4HP PRN PO 04/29/25 23:15 05/02/25 10:53 1 TAB Ondansetron HCl 4 mg Q4HP PRN IV 04/29/25 23:15 Docusate Sodium 100 mg BIDPRN PRN PO 04/29/25 23:15 Acetaminophen 650 mg Q6HP PRN PO 04/29/25 23:15 Nitroglycerin 0.4 mg Q5MINP PRN SL 04/29/25 23:15 Morphine Sulfate 2 mg Q30M PRN IV 04/29/25 23:15 Hydromorphone HCl 0.25 mg Q4HPRN PRN IV 05/02/25 17:00 05/03/25 03:41 0.25 MG laboratory and microbiology Laboratory Tests 05/03/25 05:01 Test 05/03/25 05:01 Range/Units Serum Glucose 79 74-106 mg/dL Microbiology Date/Time Source Procedure Growth Status 04/29/25 23:40 Blood Blood Culture - Preliminary NO GROWTH AFTER 72 HOURS OF INCUBATION. Resulted 04/29/25 16:30 Voided Urine Urine Culture - Final Complete Problem List/Assessment/Plan Problem List/Assessment/Plan AFEBRILE VSS ABD SOFT LESS TENDER RUQ LIPASE WNL HIDA SCAN NEG FOR AC CYSTIC DUCT OBSTRUCTION REPEAT CT SCAN NO WORSENING PANCREATITIS ALLOW DIET TIMA CLOSE OBSERVATION Plan discussed with: Other JOSE MANUEL BENÍTEZ MD May 03, 2025 21:45
--- NOTE | 2025-05-03 21:48 | DVHPN2 ---
Progress Note - Dictate Date Seen: May 03, 2025 Medical Necessity Reason Pt with a Central, PICC or Fol: No Subjective No new complaints Liver enzymes and lipase is normal HIDA scan is negative vital signs Vital Sign Date Time Temp Pulse Resp B/P (MAP) Pulse Ox O2 Delivery O2 Flow Rate FiO2 05/03/25 17:00 99.3 79 18 141/67 (91) 99 99.3 05/03/25 08:00 Room Air* 0 21 Total Intake and Output 05/02/25 05/02/25 05/03/25 15:00 23:00 07:00 Intake Total 50 ml 1500 ml Balance 50 ml 1500 ml medications Current Medications Medications Dose Ordered Sig/Leonora Route Start Time Stop Time Status Last Admin Dose Admin Ceftriaxone Sodium 50 ml @ 100 mls/hr DAILY@2100 IV 04/30/25 21:00 05/03/25 20:52 100 MLS/HR Metronidazole 100 ml @ 100 mls/hr Q8HR IV 04/29/25 23:30 05/03/25 14:00 100 MLS/HR Hydralazine HCl 10 mg Q6HP PRN IV 04/29/25 23:15 Losartan Potassium 50 mg DAILY PO 04/30/25 10:00 05/03/25 10:22 50 MG Amlodipine Besylate 5 mg DAILY PO 04/30/25 10:00 05/03/25 10:00 5 MG Diagnostic Test (Pha) 1 strip ACHS 04/30/25 07:00 05/03/25 21:13 1 STRIP Insulin Human Regular ACHS SC 04/30/25 07:00 05/03/25 21:12 3 UNITS Dextrose 50 ml UD PRN IV 04/29/25 23:15 Sodium Chloride 1,000 ml @ 120 mls/hr Q8H20M IV 04/29/25 23:15 05/02/25 23:14 120 MLS/HR Acetaminophen/ Hydrocodone Bitart 1 tab Q4HP PRN PO 04/29/25 23:15 05/02/25 10:53 1 TAB Ondansetron HCl 4 mg Q4HP PRN IV 04/29/25 23:15 Docusate Sodium 100 mg BIDPRN PRN PO 04/29/25 23:15 Acetaminophen 650 mg Q6HP PRN PO 04/29/25 23:15 Nitroglycerin 0.4 mg Q5MINP PRN SL 04/29/25 23:15 Morphine Sulfate 2 mg Q30M PRN IV 04/29/25 23:15 Hydromorphone HCl 0.25 mg Q4HPRN PRN IV 05/02/25 17:00 05/03/25 03:41 0.25 MG objective General Appearance: Alert, Oriented X3, Cooperative, No acute distress HEENT: Atraumatic, PERRLA, EOMI, Mucous membr. moist/pink Respiratory: Clear to auscultation, Normal air movement Cardiovascular: Regular rate, Normal S1, Normal S2, No murmurs Abdominal: Normal bowel sounds, Soft, No hepatospenomegaly, No masses, Other (Reports tenderness) Extremities: No clubbing, No cyanosis, No edema, Normal pulses, No tenderness/swelling Skin: No rashes, No breakdown, No significant lesion Neuro: Normal gait, Normal speech, Strength at 5/5 X4 ext, Normal tone, Sensation intact, Cranial nerves 3-12 NL, Reflexes 2+ Psych/Mental Status: Mental status NL, Mood NL laboratory and microbiology Laboratory Tests 05/03/25 05:01 Test 05/03/25 05:01 Range/Units Serum Glucose 79 74-106 mg/dL ABD PELVIC CT SCAN IMPRESSION: 1. Large calcified gallstone without evidence of acute cholecystitis. 2. Acute pancreatitis. No organized peripancreatic fluid collection. Limited assessment of the pancreatic parenchyma in the absence of IV contrast. Problems(with codes): (1) Cholelithiasis (2) Intractable nausea and vomiting (3) Acute abdominal pain (4) Pancreatic necrosis (5) Acute pancreatitis Prognosis Plan Advance diet as tolerated Outpatient elective cholecystectomy being considered Continue supportive care IV fluid hydration and pain control Discharge planning as per hospitalist Outpatient follow up with me in 4-6 weeks or as needed Plan discussed with: Patient, Daughter AALIYAH BENÍTEZ MD May 03, 2025 21:48
[2025-05-04] VITALS (8 sets, daily range): BP systolic 123–149; BP diastolic 56–75; PULSE 69–85; RESP 14–18; TEMP 97.8–99.3; O2SAT 94–99
--- NOTE | 2025-05-04 10:04 | DVHPN2 ---
Reviewed: Care Plan, H&P, Labs, Medications, Previous Orders, Radiology Changes from previous H/P or p: No Changes Eyes: No Pain, No Vision change, No Conjunctivae inflammation, No Eyelid inflammation, No Other, No Redness ENT: No Ear pain, No Ear discharge, No Nose pain, No Nose discharge, No Nose congestion, No Mouth pain, No Mouth swelling, No Throat pain, No Throat swelling, No Other Cardiovascular: No Chest Pain, No Palpitations, No Orthopnea, No Paroxysmal Noc. Dyspnea, No Edema, No Lt Headedness, No Other Respiratory: No Cough, No Dry, No Shortness of breath, No SOB with excertion, No Wheezing, No Hemoptysis, No Pleuritic Pain, No Sputum, No Other Gastrointestinal: Nausea, Vomiting, Abdominal Pain; No Diarrhea, No Constipation, No Melena, No Hematochezia, No Other Genitourinary: No Dysuria, No Frequency, No Incontinence, No Hematuria, No Retention, No Other Musculoskeletal: No other, No neck pain, No shoulder pain, No arm pain, No back pain, No hand pain, No leg pain, No foot pain Skin: No Rash, No Lesions, No Jaundice, No Bruising, No Other Objective Vitals Vital Signs Date Time Temp Pulse Resp B/P (MAP) Pulse Ox O2 Delivery O2 Flow Rate FiO2 05/04/25 05:00 98.4 73 14 149/75 (99) 95 98.4 05/03/25 20:00 Nasal Cannula* 2 28 Intake/Output Intake and Output 05/04/25 07:00 Intake Total 1850 ml Balance 1850 ml Intake Oral 800 ml IV Total 1050 ml # Voids 7 # Bowel Movements 7 Medications Current Medications Medications Dose Ordered Sig/Leonora Route Start Time Stop Time Status Last Admin Dose Admin Ceftriaxone Sodium 50 ml @ 100 mls/hr DAILY@2100 IV 04/30/25 21:00 05/03/25 20:52 100 MLS/HR Metronidazole 100 ml @ 100 mls/hr Q8HR IV 04/29/25 23:30 05/04/25 05:55 100 MLS/HR Hydralazine HCl 10 mg Q6HP PRN IV 04/29/25 23:15 Losartan Potassium 50 mg DAILY PO 04/30/25 10:00 05/03/25 10:22 50 MG Amlodipine Besylate 5 mg DAILY PO 04/30/25 10:00 05/03/25 10:00 5 MG Diagnostic Test (Pha) 1 strip ACHS 04/30/25 07:00 05/04/25 06:07 1 STRIP Insulin Human Regular ACHS SC 04/30/25 07:00 05/03/25 21:12 3 UNITS Dextrose 50 ml UD PRN IV 04/29/25 23:15 Sodium Chloride 1,000 ml @ 120 mls/hr Q8H20M IV 04/29/25 23:15 05/04/25 06:02 120 MLS/HR Acetaminophen/ Hydrocodone Bitart 1 tab Q4HP PRN PO 04/29/25 23:15 05/02/25 10:53 1 TAB Ondansetron HCl 4 mg Q4HP PRN IV 04/29/25 23:15 Docusate Sodium 100 mg BIDPRN PRN PO 04/29/25 23:15 Acetaminophen 650 mg Q6HP PRN PO 04/29/25 23:15 Nitroglycerin 0.4 mg Q5MINP PRN SL 04/29/25 23:15 Morphine Sulfate 2 mg Q30M PRN IV 04/29/25 23:15 Hydromorphone HCl 0.25 mg Q4HPRN PRN IV 05/02/25 17:00 05/03/25 03:41 0.25 MG Laboratory Results Laboratory Tests 05/03/25 05:01 Urinalysis Test 04/29/25 16:30 Urine Color Yellow (Yellow) Urine Clarity Turbid (Clear) H Urine pH 6.0 (5.0-9.0) Urine Specific [place] 1.038 (1.001-1.035) Urine Protein 1+ (Negative) H Urine Ketones Trace (Negative) Urine Blood Negative /uL (Negative) Urine Nitrite Negative (Negative) Urine Bilirubin 1+ (Negative) H Urine Urobilinogen 2 mg/dL (Negative) H Urine Leukocyte Esterase 2+ /uL (Negative) Urine RBC 1 /hpf (0 - 4) Urine Microscopic WBC 10 /HPF (0-5) H Urine Squamous Epithelial Cells Few /hpf (<5) Urine Bacteria Few /hpf (None Seen) H Urine Hyaline Casts Few /lpf (0 - 2) Urine Mucus Few (None Seen) Urine Glucose Trace mg/dL (Normal) Microbiology Microbiology Date/Time Source Procedure Growth Status 04/29/25 23:40 Blood Blood Culture - Preliminary NO GROWTH AFTER 72 HOURS OF INCUBATION. Resulted 04/29/25 16:30 Voided Urine Urine Culture - Final Complete Labs and/or images reviewed: Labs reviewed by me, Image(s) reviewed by me Assessment/Plan Assessment/Plan Acute Abdominal pain Acute pancreatitis NPO IV fluids pain medications Rocephin Flagyl, GI consult by Dr. Homar Mcpherson appreciated, lipase down from 86 to 51 3 mm gallstones , cholecystitis ruled out by negative HIDA scan surgical consult to Dr. Ashely Mcpherson appreciated, advised conservative management for the present Acute urinary tract infection: Blood cultures negative, urine cultures growing Gram-negative rods, continue Rocephin History of cancer Hypertension History of umbilical hernia repair Spent 45 minutes Patient is full code CT abdomen pelvis with oral contrast shows large calcified gallstone, negative for cholecystitis Plan discussed with: Patient Date of Service: May 04, 2025 Billing Provider: GABRIEL AMAYA MD Common Visit Codes: [id number] INP/OBS CARE(HIGH) GABRIEL AMAYA MD May 04, 2025 10:04
[2025-05-04] MEDS: LACTATED RINGER'S 1,000 ML IV SCH (10:45)
--- NOTE | 2025-05-04 21:30 | DVHPN2 ---
Progress Note Date Seen: May 04, 2025 Medical Necessity Reason Pt with a Central, PICC or Fol: No Objective vital signs Vital Sign Date Time Temp Pulse Resp B/P (MAP) Pulse Ox O2 Delivery O2 Flow Rate FiO2 05/04/25 17:00 98.8 81 18 131/69 (89) 95 98.8 05/04/25 08:00 Nasal Cannula* 2 28 Total Intake and Output 05/03/25 05/03/25 05/04/25 15:00 23:00 07:00 Intake Total 150 ml 1700 ml Balance 150 ml 1700 ml medications Current Medications Medications Dose Ordered Sig/Leonora Route Start Time Stop Time Status Last Admin Dose Admin Ceftriaxone Sodium 50 ml @ 100 mls/hr DAILY@2100 IV 04/30/25 21:00 05/04/25 21:02 100 MLS/HR Metronidazole 100 ml @ 100 mls/hr Q8HR IV 04/29/25 23:30 05/04/25 14:39 100 MLS/HR Hydralazine HCl 10 mg Q6HP PRN IV 04/29/25 23:15 Losartan Potassium 50 mg DAILY PO 04/30/25 10:00 05/04/25 10:40 50 MG Amlodipine Besylate 5 mg DAILY PO 04/30/25 10:00 05/04/25 10:39 5 MG Acetaminophen/ Hydrocodone Bitart 1 tab Q4HP PRN PO 04/29/25 23:15 05/02/25 10:53 1 TAB Ondansetron HCl 4 mg Q4HP PRN IV 04/29/25 23:15 Docusate Sodium 100 mg BIDPRN PRN PO 04/29/25 23:15 Acetaminophen 650 mg Q6HP PRN PO 04/29/25 23:15 Nitroglycerin 0.4 mg Q5MINP PRN SL 04/29/25 23:15 Morphine Sulfate 2 mg Q30M PRN IV 04/29/25 23:15 Hydromorphone HCl 0.25 mg Q4HPRN PRN IV 05/02/25 17:00 05/03/25 03:41 0.25 MG Lactated Ringer's 1,000 ml @ 125 mls/hr Q8H IV 05/04/25 10:45 05/04/25 10:45 125 MLS/HR laboratory and microbiology Laboratory Tests 05/03/25 05:01 Test 05/03/25 05:01 Range/Units Serum Glucose 79 74-106 mg/dL Microbiology Date/Time Source Procedure Growth Status 04/29/25 23:40 Blood Blood Culture - Preliminary NO GROWTH AFTER 72 HOURS OF INCUBATION. Resulted 04/29/25 16:30 Voided Urine Urine Culture - Final Complete Problem List/Assessment/Plan Problem List/Assessment/Plan AFEBRILE VSS ABD SOFT LESS TENDER RUQ LIPASE WNL HIDA SCAN NEG FOR AC CYSTIC DUCT OBSTRUCTION REPEAT CT SCAN NO WORSENING PANCREATITIS ALLOW DIET TIMA CLOSE OBSERVATION NURSE AT BEDSIDE Plan discussed with: Patient Dietary Evaluation Review Comments: Nutrition Recommendation: 1) Consider TPN if CLD/NPO>7 days 2) Advance to soft (GI soft) diet as medically feasible 3) Monitor PO intake, lab values, weight trend, and I/O Expected Outcomes/Goals: Intake to meet >75% estimated needs GI symptoms to improve Fu 2-3 days JOSE MANUEL BENÍTEZ MD May 04, 2025 21:30
[2025-05-05] VITALS (8 sets, daily range): BP systolic 125–140; BP diastolic 67–81; PULSE 71–82; RESP 16–93; TEMP 97.8–100.6; O2SAT 93–97
[2025-05-05 05:42] LABS: Hematocrit 33.6 % (36.0-46.0); Hemoglobin 11.3 g/dL (12.2-16.2); Mean Corpuscular Hemoglobin 27.0 pg (28.0-32.0); Mean Corpuscular Volume 80.0 fL (80.0-100.0); Nucleated Red Blood Cells % 0.0 %
[2025-05-05 05:48] LABS: Alanine Aminotransferase 22 U/L (7-40); Alkaline Phosphatase 65 U/L (46-116); Anion Gap 8 (5-15); BUN/Creatinine Ratio 15.0 (10.0-20.0); Carbon Dioxide 28 mmol/L (20-31); Chloride 104 mmol/L (98-107); Lipase 37 U/L (12-53); Sodium 140 mmol/L (136-145); Total Protein 5.8 g/dL (5.7-8.2)
[2025-05-05 05:49] LABS: Bilirubin, Total 0.5 mg/dL (0.2-1.0)
[2025-05-05 06:02] LABS: Blood Urea Nitrogen 6 mg/dL (9-23); Calcium 8.1 mg/dL (8.7-10.4); Glucose 113 mg/dL (74-106); Potassium 3.1 mmol/L (3.5-5.1)
[2025-05-05 06:03] LABS: Albumin 3.2 g/dL (3.2-4.8)
--- NOTE | 2025-05-05 10:49 | DVHPN2 ---
Reviewed: Care Plan, H&P, Labs, Medications, Previous Orders, Radiology Changes from previous H/P or p: No Changes Eyes: No Pain, No Vision change, No Conjunctivae inflammation, No Eyelid inflammation, No Other, No Redness ENT: No Ear pain, No Ear discharge, No Nose pain, No Nose discharge, No Nose congestion, No Mouth pain, No Mouth swelling, No Throat pain, No Throat swelling, No Other Cardiovascular: No Chest Pain, No Palpitations, No Orthopnea, No Paroxysmal Noc. Dyspnea, No Edema, No Lt Headedness, No Other Respiratory: No Cough, No Dry, No Shortness of breath, No SOB with excertion, No Wheezing, No Hemoptysis, No Pleuritic Pain, No Sputum, No Other Gastrointestinal: Nausea, Vomiting, Abdominal Pain; No Diarrhea, No Constipation, No Melena, No Hematochezia, No Other Genitourinary: No Dysuria, No Frequency, No Incontinence, No Hematuria, No Retention, No Other Musculoskeletal: No other, No neck pain, No shoulder pain, No arm pain, No back pain, No hand pain, No leg pain, No foot pain Skin: No Rash, No Lesions, No Jaundice, No Bruising, No Other Objective Vitals Vital Signs Date Time Temp Pulse Resp B/P (MAP) Pulse Ox O2 Delivery O2 Flow Rate FiO2 05/05/25 08:38 98.5 82 16 125/71 (89) 93 98.5 05/04/25 20:00 Nasal Cannula* 2 28 Intake/Output Intake and Output 05/05/25 07:00 Intake Total 2200 ml Balance 2200 ml Intake Oral 850 ml IV Total 1350 ml # Voids 6 # Bowel Movements 4 Medications Current Medications Medications Dose Ordered Sig/Leonora Route Start Time Stop Time Status Last Admin Dose Admin Ceftriaxone Sodium 50 ml @ 100 mls/hr DAILY@2100 IV 04/30/25 21:00 05/04/25 21:02 100 MLS/HR Metronidazole 100 ml @ 100 mls/hr Q8HR IV 04/29/25 23:30 05/05/25 05:38 100 MLS/HR Hydralazine HCl 10 mg Q6HP PRN IV 04/29/25 23:15 Losartan Potassium 50 mg DAILY PO 04/30/25 10:00 05/04/25 10:40 50 MG Amlodipine Besylate 5 mg DAILY PO 04/30/25 10:00 05/04/25 10:39 5 MG Acetaminophen/ Hydrocodone Bitart 1 tab Q4HP PRN PO 04/29/25 23:15 05/02/25 10:53 1 TAB Ondansetron HCl 4 mg Q4HP PRN IV 04/29/25 23:15 Docusate Sodium 100 mg BIDPRN PRN PO 04/29/25 23:15 Acetaminophen 650 mg Q6HP PRN PO 04/29/25 23:15 Nitroglycerin 0.4 mg Q5MINP PRN SL 04/29/25 23:15 Morphine Sulfate 2 mg Q30M PRN IV 04/29/25 23:15 Hydromorphone HCl 0.25 mg Q4HPRN PRN IV 05/02/25 17:00 05/03/25 03:41 0.25 MG Lactated Ringer's 1,000 ml @ 125 mls/hr Q8H IV 05/04/25 10:45 05/05/25 05:47 125 MLS/HR Laboratory Results Laboratory Tests 05/05/25 05:15 Chemistry Test 05/05/25 05:15 Albumin 3.2 g/dL (3.2-4.8) Calcium Level 8.1 mg/dL (8.7-10.4) L Total Protein 5.8 g/dL (5.7-8.2) Lipid panel Test 05/05/25 05:15 Lipase 37 U/L (12-53) LFT Test 05/05/25 05:15 Alanine Aminotransferase (ALT) 22 U/L (7-40) Alkaline Phosphatase 65 U/L (46-116) Aspartate Amino Transferase (AST) 17 U/L (13-40) Total Bilirubin 0.5 mg/dL (0.2-1.0) Urinalysis Test 04/29/25 16:30 Urine Color Yellow (Yellow) Urine Clarity Turbid (Clear) H Urine pH 6.0 (5.0-9.0) Urine Specific [place] 1.038 (1.001-1.035) Urine Protein 1+ (Negative) H Urine Ketones Trace (Negative) Urine Blood Negative /uL (Negative) Urine Nitrite Negative (Negative) Urine Bilirubin 1+ (Negative) H Urine Urobilinogen 2 mg/dL (Negative) H Urine Leukocyte Esterase 2+ /uL (Negative) Urine RBC 1 /hpf (0 - 4) Urine Microscopic WBC 10 /HPF (0-5) H Urine Squamous Epithelial Cells Few /hpf (<5) Urine Bacteria Few /hpf (None Seen) H Urine Hyaline Casts Few /lpf (0 - 2) Urine Mucus Few (None Seen) Urine Glucose Trace mg/dL (Normal) Microbiology Microbiology Date/Time Source Procedure Growth Status 04/29/25 23:40 Blood Blood Culture - Final NO GROWTH AFTER 5 DAYS OF INCUBATION. Complete 04/29/25 16:30 Voided Urine Urine Culture - Final Complete Labs and/or images reviewed: Labs reviewed by me, Image(s) reviewed by me Assessment/Plan Assessment/Plan Acute Abdominal pain Acute pancreatitis NPO IV fluids pain medications Rocephin Flagyl, GI consult by Dr. Homar Mcpherson appreciated, lipase down from 86 to 51 3 mm gallstones , cholecystitis ruled out by negative HIDA scan surgical consult to Dr. Ashely Mcpherson appreciated, advised conservative management for the present Acute urinary tract infection: Blood cultures negative, urine cultures growing Gram-negative rods, continue Rocephin History of cancer Hypertension History of umbilical hernia repair Spent 45 minutes Patient is full code CT abdomen pelvis with oral contrast shows large calcified gallstone, negative for cholecystitis Feels better with less nausea and less abdominal pain Patient's daughter and RN Gayathri at bed side Plan discussed with: Patient My Orders Orders - GABRIEL AMAYA MD Procedure Category Date Status Time Lactated Ringer's PHA 05/04/25 In Process 10:45 Date of Service: May 05, 2025 Billing Provider: GABRIEL AMAYA MD Common Visit Codes: [id number] INP/OBS CARE(HIGH) GABRIEL AMAYA MD May 05, 2025 10:49
[2025-05-05] MEDS: ACETAMINOPHEN 325 MG TAB PO PRN (18:38)
--- NOTE | 2025-05-05 21:58 | DVHPN2 ---
Progress Note - Dictate Date Seen: May 05, 2025 Medical Necessity Reason Pt with a Central, PICC or Fol: No Subjective No new complaints Liver enzymes and lipase is normal HIDA scan is negative vital signs Vital Sign Date Time Temp Pulse Resp B/P (MAP) Pulse Ox O2 Delivery O2 Flow Rate FiO2 05/05/25 21:00 97.8 71 16 126/72 (90) 96 97.8 05/05/25 08:00 Room Air* 0 21 Total Intake and Output 05/04/25 05/04/25 05/05/25 15:00 23:00 07:00 Intake Total 750 ml 1450 ml Balance 750 ml 1450 ml medications Current Medications Medications Dose Ordered Sig/Leonora Route Start Time Stop Time Status Last Admin Dose Admin Ceftriaxone Sodium 50 ml @ 100 mls/hr DAILY@2100 IV 04/30/25 21:00 05/05/25 20:56 100 MLS/HR Metronidazole 100 ml @ 100 mls/hr Q8HR IV 04/29/25 23:30 05/05/25 13:46 100 MLS/HR Hydralazine HCl 10 mg Q6HP PRN IV 04/29/25 23:15 Losartan Potassium 50 mg DAILY PO 04/30/25 10:00 05/05/25 11:31 50 MG Amlodipine Besylate 5 mg DAILY PO 04/30/25 10:00 05/05/25 11:31 5 MG Acetaminophen/ Hydrocodone Bitart 1 tab Q4HP PRN PO 04/29/25 23:15 05/02/25 10:53 1 TAB Ondansetron HCl 4 mg Q4HP PRN IV 04/29/25 23:15 Docusate Sodium 100 mg BIDPRN PRN PO 04/29/25 23:15 Acetaminophen 650 mg Q6HP PRN PO 04/29/25 23:15 05/05/25 18:38 650 MG Nitroglycerin 0.4 mg Q5MINP PRN SL 04/29/25 23:15 Morphine Sulfate 2 mg Q30M PRN IV 04/29/25 23:15 Hydromorphone HCl 0.25 mg Q4HPRN PRN IV 05/02/25 17:00 05/03/25 03:41 0.25 MG Lactated Ringer's 1,000 ml @ 125 mls/hr Q8H IV 05/04/25 10:45 05/05/25 18:37 125 MLS/HR objective General Appearance: Alert, Oriented X3, Cooperative, No acute distress HEENT: Atraumatic, PERRLA, EOMI, Mucous membr. moist/pink Respiratory: Clear to auscultation, Normal air movement Cardiovascular: Regular rate, Normal S1, Normal S2, No murmurs Abdominal: Normal bowel sounds, Soft, No hepatospenomegaly, No masses, Other (Reports tenderness) Extremities: No clubbing, No cyanosis, No edema, Normal pulses, No tenderness/swelling Skin: No rashes, No breakdown, No significant lesion Neuro: Normal gait, Normal speech, Strength at 5/5 X4 ext, Normal tone, Sensation intact, Cranial nerves 3-12 NL, Reflexes 2+ Psych/Mental Status: Mental status NL, Mood NL laboratory and microbiology Laboratory Tests 05/05/25 05:15 Test 05/05/25 05:15 Range/Units Serum Glucose 113 H 74-106 mg/dL CT SCAN ABD PELVIS IMPRESSION: 1. Large calcified gallstone without evidence of acute cholecystitis. 2. Acute pancreatitis. No organized peripancreatic fluid collection. Limited assessment of the pancreatic parenchyma in the absence of IV contrast. Problems(with codes): (1) Cholelithiasis (2) Intractable nausea and vomiting (3) Acute pancreatitis Prognosis Assessment and plan Patient appears to be clinically improving Her lab tests have normalized Leukocytosis is improving Patient is tolerating clear liquid diet Advance to full liquid diet She is pain-free today Discharge planning as per hospitalist Patient is cleared for discharge from GI point of view Dietary Evaluation Review Comments: Nutrition Recommendation: 1) Consider TPN if CLD/NPO>7 days 2) Advance to soft (GI soft) diet as medically feasible 3) Monitor PO intake, lab values, weight trend, and I/O Expected Outcomes/Goals: Intake to meet >75% estimated needs GI symptoms to improve Fu 2-3 days Plan discussed with: Patient, Other (Dr Joaquín Wang) AALIYAH BENÍTEZ MD May 05, 2025 21:58
--- NOTE | 2025-05-05 23:18 | DVHPN2 ---
Progress Note Date Seen: May 05, 2025 Medical Necessity Reason Pt with a Central, PICC or Fol: No Objective vital signs Vital Sign Date Time Temp Pulse Resp B/P (MAP) Pulse Ox O2 Delivery O2 Flow Rate FiO2 05/05/25 21:00 97.8 71 16 126/72 (90) 96 97.8 05/05/25 20:00 Nasal Cannula* 2 28 Total Intake and Output 05/04/25 05/04/25 05/05/25 15:00 23:00 07:00 Intake Total 750 ml 1450 ml Balance 750 ml 1450 ml medications Current Medications Medications Dose Ordered Sig/Leonora Route Start Time Stop Time Status Last Admin Dose Admin Ceftriaxone Sodium 50 ml @ 100 mls/hr DAILY@2100 IV 04/30/25 21:00 05/05/25 20:56 100 MLS/HR Metronidazole 100 ml @ 100 mls/hr Q8HR IV 04/29/25 23:30 05/05/25 23:06 100 MLS/HR Hydralazine HCl 10 mg Q6HP PRN IV 04/29/25 23:15 Losartan Potassium 50 mg DAILY PO 04/30/25 10:00 05/05/25 11:31 50 MG Amlodipine Besylate 5 mg DAILY PO 04/30/25 10:00 05/05/25 11:31 5 MG Acetaminophen/ Hydrocodone Bitart 1 tab Q4HP PRN PO 04/29/25 23:15 05/02/25 10:53 1 TAB Ondansetron HCl 4 mg Q4HP PRN IV 04/29/25 23:15 Docusate Sodium 100 mg BIDPRN PRN PO 04/29/25 23:15 Acetaminophen 650 mg Q6HP PRN PO 04/29/25 23:15 05/05/25 18:38 650 MG Nitroglycerin 0.4 mg Q5MINP PRN SL 04/29/25 23:15 Morphine Sulfate 2 mg Q30M PRN IV 04/29/25 23:15 Hydromorphone HCl 0.25 mg Q4HPRN PRN IV 05/02/25 17:00 05/03/25 03:41 0.25 MG Lactated Ringer's 1,000 ml @ 125 mls/hr Q8H IV 05/04/25 10:45 05/05/25 18:37 125 MLS/HR laboratory and microbiology Laboratory Tests 05/05/25 05:15 Test 05/05/25 05:15 Range/Units Serum Glucose 113 H 74-106 mg/dL Microbiology Date/Time Source Procedure Growth Status 04/29/25 23:40 Blood Blood Culture - Final NO GROWTH AFTER 5 DAYS OF INCUBATION. Complete 04/29/25 16:30 Voided Urine Urine Culture - Final Complete Problem List/Assessment/Plan Problem List/Assessment/Plan AFEBRILE VSS ABD SOFT LESS TENDER RUQ LIPASE WNL HIDA SCAN NEG FOR AC CYSTIC DUCT OBSTRUCTION REPEAT CT SCAN NO WORSENING PANCREATITIS ALLOW DIET TIMA CONSIDER ELECTIVE GB SURGERY INDICATED NURSE AT BEDSIDE CLEARED FOR DISCHARGE Plan discussed with: Patient Dietary Evaluation Review Comments: Nutrition Recommendation: 1) Consider TPN if CLD/NPO>7 days 2) Advance to soft (GI soft) diet as medically feasible 3) Monitor PO intake, lab values, weight trend, and I/O Expected Outcomes/Goals: Intake to meet >75% estimated needs GI symptoms to improve Fu 2-3 days JOSE MANUEL BENÍTEZ MD May 05, 2025 23:18
[2025-05-06 01:00] VITALS: BP 127/69; PULSE 73; RESP 18; TEMP 97.5; O2SAT 99
[2025-05-06 05:00] VITALS: BP 124/65; PULSE 77; RESP 18; TEMP 98.1; O2SAT 98
[2025-05-06 06:01] LABS: Hemoglobin 10.8 g/dL (12.2-16.2); Mean Corpuscular Volume 79.2 fL (80.0-100.0)
[2025-05-06 06:06] LABS: Alanine Aminotransferase 18 U/L (7-40); Alkaline Phosphatase 61 U/L (46-116); Anion Gap 9 (5-15); Carbon Dioxide 28 mmol/L (20-31); Chloride 103 mmol/L (98-107); Glucose 102 mg/dL (74-106); Lipase 38 U/L (12-53); Sodium 140 mmol/L (136-145); Total Protein 5.7 g/dL (5.7-8.2)
[2025-05-06 06:07] LABS: Bilirubin, Total 0.4 mg/dL (0.2-1.0); Hematocrit 31.4 % (36.0-46.0); Mean Corpuscular Hemoglobin 27.3 pg (28.0-32.0); Nucleated Red Blood Cells % 0.1 %
[2025-05-06 06:17] LABS: Albumin 3.2 g/dL (3.2-4.8); BUN/Creatinine Ratio 11.6 (10.0-20.0); Blood Urea Nitrogen < 5 mg/dL (9-23); Calcium 8.3 mg/dL (8.7-10.4); Potassium 3.2 mmol/L (3.5-5.1)
[2025-05-06 08:00] VITALS: RESP 18
[2025-05-06 09:00] VITALS: BP 139/80; PULSE 82; RESP 18; TEMP 99; O2SAT 96
--- NOTE | 2025-05-06 12:23 | DVHPN2 ---
Reviewed: Care Plan, H&P, Labs, Medications, Previous Orders, Radiology Changes from previous H/P or p: No Changes Eyes: No Pain, No Vision change, No Conjunctivae inflammation, No Eyelid inflammation, No Other, No Redness ENT: No Ear pain, No Ear discharge, No Nose pain, No Nose discharge, No Nose congestion, No Mouth pain, No Mouth swelling, No Throat pain, No Throat swelling, No Other Cardiovascular: No Chest Pain, No Palpitations, No Orthopnea, No Paroxysmal Noc. Dyspnea, No Edema, No Lt Headedness, No Other Respiratory: No Cough, No Dry, No Shortness of breath, No SOB with excertion, No Wheezing, No Hemoptysis, No Pleuritic Pain, No Sputum, No Other Gastrointestinal: Nausea, Vomiting, Abdominal Pain; No Diarrhea, No Constipation, No Melena, No Hematochezia, No Other Genitourinary: No Dysuria, No Frequency, No Incontinence, No Hematuria, No Retention, No Other Musculoskeletal: No other, No neck pain, No shoulder pain, No arm pain, No back pain, No hand pain, No leg pain, No foot pain Skin: No Rash, No Lesions, No Jaundice, No Bruising, No Other Objective Vitals Vital Signs Date Time Temp Pulse Resp B/P (MAP) Pulse Ox O2 Delivery O2 Flow Rate FiO2 05/06/25 09:48 139/80 05/06/25 09:00 99.0 82 18 96 99.0 05/06/25 08:00 Nasal Cannula* 2 28 Intake/Output Intake and Output 05/06/25 07:00 Intake Total 1900 ml Balance 1900 ml Intake Oral 1350 ml IV Total 550 ml # Voids 6 # Bowel Movements 7 Medications Current Medications Medications Dose Ordered Sig/Leonora Route Start Time Stop Time Status Last Admin Dose Admin Ceftriaxone Sodium 50 ml @ 100 mls/hr DAILY@2100 IV 04/30/25 21:00 05/05/25 20:56 100 MLS/HR Metronidazole 100 ml @ 100 mls/hr Q8HR IV 04/29/25 23:30 05/06/25 05:58 100 MLS/HR Hydralazine HCl 10 mg Q6HP PRN IV 04/29/25 23:15 Losartan Potassium 50 mg DAILY PO 04/30/25 10:00 05/06/25 09:48 50 MG Amlodipine Besylate 5 mg DAILY PO 04/30/25 10:00 05/06/25 09:48 5 MG Acetaminophen/ Hydrocodone Bitart 1 tab Q4HP PRN PO 04/29/25 23:15 05/02/25 10:53 1 TAB Ondansetron HCl 4 mg Q4HP PRN IV 04/29/25 23:15 Docusate Sodium 100 mg BIDPRN PRN PO 04/29/25 23:15 Acetaminophen 650 mg Q6HP PRN PO 04/29/25 23:15 05/05/25 18:38 650 MG Nitroglycerin 0.4 mg Q5MINP PRN SL 04/29/25 23:15 Morphine Sulfate 2 mg Q30M PRN IV 04/29/25 23:15 Hydromorphone HCl 0.25 mg Q4HPRN PRN IV 05/02/25 17:00 05/03/25 03:41 0.25 MG Lactated Ringer's 1,000 ml @ 125 mls/hr Q8H IV 05/04/25 10:45 05/06/25 09:55 125 MLS/HR Laboratory Results Laboratory Tests 05/06/25 05:13 Chemistry Test 05/06/25 05:13 Albumin 3.2 g/dL (3.2-4.8) Calcium Level 8.3 mg/dL (8.7-10.4) L Total Protein 5.7 g/dL (5.7-8.2) Lipid panel Test 05/06/25 05:13 Lipase 38 U/L (12-53) LFT Test 05/06/25 05:13 Alanine Aminotransferase (ALT) 18 U/L (7-40) Alkaline Phosphatase 61 U/L (46-116) Aspartate Amino Transferase (AST) 15 U/L (13-40) Total Bilirubin 0.4 mg/dL (0.2-1.0) Urinalysis Test 04/29/25 16:30 Urine Color Yellow (Yellow) Urine Clarity Turbid (Clear) H Urine pH 6.0 (5.0-9.0) Urine Specific [place] 1.038 (1.001-1.035) Urine Protein 1+ (Negative) H Urine Ketones Trace (Negative) Urine Blood Negative /uL (Negative) Urine Nitrite Negative (Negative) Urine Bilirubin 1+ (Negative) H Urine Urobilinogen 2 mg/dL (Negative) H Urine Leukocyte Esterase 2+ /uL (Negative) Urine RBC 1 /hpf (0 - 4) Urine Microscopic WBC 10 /HPF (0-5) H Urine Squamous Epithelial Cells Few /hpf (<5) Urine Bacteria Few /hpf (None Seen) H Urine Hyaline Casts Few /lpf (0 - 2) Urine Mucus Few (None Seen) Urine Glucose Trace mg/dL (Normal) Microbiology Microbiology Date/Time Source Procedure Growth Status 04/29/25 23:40 Blood Blood Culture - Final NO GROWTH AFTER 5 DAYS OF INCUBATION. Complete 04/29/25 16:30 Voided Urine Urine Culture - Final Complete Labs and/or images reviewed: Labs reviewed by me, Image(s) reviewed by me Assessment/Plan Assessment/Plan Acute Abdominal pain Acute pancreatitis Rocephin Flagyl, GI consult by Dr. Homar Mcpherson appreciated, lipase down from 86 to 51 3 mm gallstones , cholecystitis ruled out by negative HIDA scan surgical consult to Dr. Ashely Mcpherson appreciated, advised conservative management for the present Acute urinary tract infection: Blood cultures negative, urine cultures growing Gram-negative rods, continue Rocephin History of cancer Hypertension History of umbilical hernia repair Spent 45 minutes Patient is full code CT abdomen pelvis with oral contrast shows large calcified gallstone, negative for cholecystitis Feels better with less nausea and less abdominal pain Patient's daughter and RN Gayathri at bed side Cleared for discharge by surgeon and GI Tolerating regular diet at the time of discharge Plan discussed with: Patient My Orders Orders - GABRIEL AMAYA MD Procedure Category Date Status Time Complete Blood Count LAB 05/07/25 Verified 04:00 Comprehensive LAB 05/07/25 Verified Metabolic Panel 04:00 Lipase LAB 05/07/25 Verified 04:00 Date of Service: May 06, 2025 Billing Provider: GABRIEL AMAYA MD Common Visit Codes: [id number] INP/OBS CARE(HIGH) GABRIEL AMAYA MD May 06, 2025 12:23
[2025-05-06] MEDS ORDERED: METR-344 PO ×2 (12:24→14:03)
[2025-05-06] MEDS ORDERED: LEVO500T91 PO ×2 (12:24→14:03)
--- NOTE | 2025-05-06 12:27 | DVHDS2 ---
Discharge Summary Date of Admission Apr 29, 2025 at 23:08 Date of Discharge: May 06, 2025 Admitting Diagnosis Acute abdominal pain Wounds: None Labs/Diagnostic Data: Laboratory Results Test 05/06/25 05:13 05/04/25 06:06 05/01/25 06:54 04/30/25 04:20 White Blood Count 8.9 10^3/uL (4.4-10.8) Red Blood Count 3.97 10^6/uL (4.0-5.20) Hemoglobin 10.8 g/dL (12.2-16.2) Hematocrit 31.4 % (36.0-46.0) Mean Corpuscular Volume 79.2 fL (80.0-100.0) Mean Corpuscular Hemoglobin 27.3 pg (28.0-32.0) Mean Corpuscular Hemoglobin Concent 34.5 g/dL (32.0-36.0) Red Cell Distribution Width 15.5 % (11.8-14.3) Platelet Count 178 10^3/uL (140-450) Mean Platelet Volume 7.9 fL (6.9-10.8) Neutrophils (%) (Auto) 75.0 % (37.0-80.0) Lymphocytes (%) (Auto) 13.0 % (10.0-50.0) Monocytes (%) (Auto) 9.9 % (0.0-12.0) Eosinophils (%) (Auto) 1.8 % (0.0-7.0) Basophils (%) (Auto) 0.3 % (0.0-2.0) Neutrophils # (Auto) 6.7 10 ^3/uL (1.6-8.6) Lymphocytes # (Auto) 1.2 10 ^3/uL (0.4-5.4) Monocytes # (Auto) 0.9 10 ^3/uL (0-1.3) Eosinophils # (Auto) 0.2 10 ^3/uL (0-0.8) Basophils # (Auto) 0 10 ^3/uL (0-0.2) Nucleated Red Blood Cells 0.1 % Sodium Level 140 mmol/L (136-145) Potassium Level 3.2 mmol/L (3.5-5.1) Chloride Level 103 mmol/L (98-107) Carbon Dioxide Level 28 mmol/L (20-31) Anion Gap 9 (5-15) Blood Urea Nitrogen < 5 mg/dL (9-23) Creatinine 0.43 mg/dL (0.550-1.02) Glomerular Filtration Rate Calc 105 mL/min (>90) BUN/Creatinine Ratio 11.6 (10.0-20.0) Serum Glucose 102 mg/dL (74-106) Calcium Level 8.3 mg/dL (8.7-10.4) Total Bilirubin 0.4 mg/dL (0.2-1.0) Aspartate Amino Transferase (AST) 15 U/L (13-40) Alanine Aminotransferase (ALT) 18 U/L (7-40) Alkaline Phosphatase 61 U/L (46-116) Total Protein 5.7 g/dL (5.7-8.2) Albumin 3.2 g/dL (3.2-4.8) Lipase 38 U/L (12-53) POC Glucose 113 mg/dl (70-106) Triglycerides Level 111 mg/dL (< 150) Cholesterol Level 127 mg/dL (< 200) LDL Cholesterol 39 mg/dL (< 100) HDL Cholesterol 69 mg/dL (40-59) Troponin I High Sensitivity 4 ng/L (</=34) Test 04/29/25 16:30 04/29/25 16:09 Urine Color Yellow (Yellow) Urine Clarity Turbid (Clear) Urine pH 6.0 (5.0-9.0) Urine Specific [place] 1.038 (1.001-1.035) Urine Protein 1+ (Negative) Urine Ketones Trace (Negative) Urine Blood Negative /uL (Negative) Urine Nitrite Negative (Negative) Urine Bilirubin 1+ (Negative) Urine Urobilinogen 2 mg/dL (Negative) Urine Leukocyte Esterase 2+ /uL (Negative) Urine RBC 1 /hpf (0 - 4) Urine Microscopic WBC 10 /HPF (0-5) Urine Squamous Epithelial Cells Few /hpf (<5) Urine Bacteria Few /hpf (None Seen) Urine Hyaline Casts Few /lpf (0 - 2) Urine Mucus Few (None Seen) Urine Glucose Trace mg/dL (Normal) Hemoglobin A1c 5.4 % A1C (<5.7) Lactic Acid Level 1.3 mmol/L (0.4-2.0) Other Laboratory Tests 05/06/25 05:13 Brief Hx & Hospital Course: 70-year-old female with a history of hypertension cancer umbilical hernia repair in the past came in complaining of acute abdominal pain found to have mild pancreatitis treated with Rocephin Flagyl GI consult by Dr. Homar Mcpherson lipase came down from [phone] patient also had 3 mm gallstone cholecystitis was ruled out by negative HIDA scan seen by surgeon Dr. Ashely Mcpherson advised conservative management treated with the pain medications IV fluids diet was slowly advanced at the time of discharge patient is tolerating regular diet without any nausea vomiting or abdominal pain. Cleared for discharge by surgeon and GI Consults/Reason for consult GI Dr. Homar Mcpherson Surgeon Dr. Ashely Mcpherson Operations or Procedures CT abdomen pelvis without contrast Gallbladder ultrasound HIDA scan Condition at Discharge: Fair Final Diagnosis/Problems List Acute Abdominal pain Acute pancreatitis Rocephin yl, GI consult by Dr. Homar Mcpherson appreciated, lipase down from 86 to 51 3 mm gallstones , cholecystitis ruled out by negative HIDA scan surgical consult to Dr. Ashely Mcpherson appreciated, advised conservative management for the present Acute urinary tract infection: Blood cultures negative, urine cultures growing Gram-negative rods, continue Rocephin History of cancer Hypertension History of umbilical hernia repair Discharge Disposition: Home Discharge Instruct/Medications Diet: Regular Activity: Light activity Follow Up/Referral: Follow up with the primary Dr in one week Follow up with GI Dr. Homar Mcpherson in 10 days Medications: Levaquin Flagyl [facility]uled Atorvastatin Calcium (Atorvastatin Calcium), 1 TAB PO QPM, (Reported) Cholecalciferol (Vitamin D), 500 UNIT PO BID, (Reported) Duloxetine HCl (Duloxetine HCl), 60 MG PO DAILY, (Reported) Levofloxacin Hemihydrate (Levaquin 500 Mg), 1 TAB PO DAILY Lisinopril (Lisinopril), 10 MG PO DAILY, (Reported) Metronidazole (Flagyl), 1 TAB PO TID 35 (Time taken for discharge summary 35 minutes) Discharge Statement: "Patient was advised to return to the ER or call 911 if any headaches, dizziness, shortness of breath, chest pain, abdominal pain, bleeding, fevers, or worsening of medical condition. Patient was counseled about treatment plan, medications, possible side effects, patientverbalized understanding. All questions were answered to the best of my ability. This discharge took greater then 30 minutes in planning, reviewing documentation, counseling the patient, and discussing with other team members." ASSESSMENT ASSESSMENT Hospital Course Improved Assessment Acute Abdominal pain Acute pancreatitis Rocephin Flagyl, GI consult by Dr. Homar Mcpherson appreciated, lipase down from 86 to 51 3 mm gallstones , cholecystitis ruled out by negative HIDA scan surgical consult to Dr. Ashely Mcpherson appreciated, advised conservative management for the present Acute urinary tract infection: Blood cultures negative, urine cultures growing Gram-negative rods, continue Rocephin History of cancer Hypertension History of umbilical hernia repair Date of Service: May 06, 2025 Billing Provider: GABRIEL AMAYA MD Common Visit Codes: 59649-LNO/OBS DISCH DAY >30min GABRIEL AMAYA MD May 06, 2025 12:27
[2025-05-06 12:53] VITALS: BP 139/80; TEMP 37.2
[2025-05-06 13:00] VITALS: BP 132/75; PULSE 81; RESP 18; TEMP 98.4; O2SAT 98
== END 2025-05-06 14:15 | disposition home or self-care (01) | DRG 282 ==
LOC: ER 14:37 → OVERFLOW 23:08 → TELE-EAST 04-30 16:30
PROVIDERS: ADMIT Family Medicine; ATTEND Family Medicine
DX: K85.10 Biliary acute pancreatitis without necrosis or infection (principal); J96.01 Acute respiratory failure with hypoxia; I16.0 Hypertensive urgency; E11.65 Type 2 diabetes mellitus with hyperglycemia; E66.01 Morbid (severe) obesity due to excess calories; B96.89 Other specified bacterial agents as the cause of diseases classified elsewhere; K86.89 Other specified diseases of pancreas; E87.6 Hypokalemia; K80.20 Calculus of gallbladder without cholecystitis without obstruction; N39.0 Urinary tract infection, site not specified; K42.9 Umbilical hernia without obstruction or gangrene; I10 Essential (primary) hypertension; Z68.32 Body mass index [BMI] 32.0-32.9, adult; Z82.49 Family history of ischemic heart disease and other diseases of the circulatory system; Z83.3 Family history of diabetes mellitus; Z85.9 Personal history of malignant neoplasm, unspecified
CPT/HCPCS: 36415; 74176; 74177; 76705; 78226; 80048; 80053; 80061; 81001; 82962; 83036; 83605; 83690; 84484; 85025; 87040; 87086; 96365; 96372; G0378; J1815; J1885; J2405; J3480; J3490